=== PATIENT | male | born 1955 | race Caucasian/White ===

== ENCOUNTER 2018-10-27 20:29 | Inpatient (IN) | payer OTHER ==
[~2018-10-27] VITALS: Ht 182.9 cm; Wt 73.4 kg
[2018-10-27 22:38] VITALS: PULSE 111; Ht 182.9 cm; Wt 73.4 kg
[2018-10-27 23:03] VITALS: BP 166/89; RESP 20
[2018-10-27] MEDS ORDERED: QUET400T PO (23:15)
[2018-10-27] MEDS ORDERED: PARO10TA57 PO (23:16)
--- NOTE | 2018-10-27 23:53 | HP ---
Date/Time of Note Date/Time of Note DATE: 10/27/18 TIME: 23:53 Assessment/Plan VTE Prophylaxis Pharmacological prophylaxis: heparin Lines/Catheters IV C[facility]ter Type (from [facility]): double lumen Assessment/Plan Assessment/Plan 1. NSTEMI -Patient with reported history of multiple MIs -Telemetry monitoring -Supplemental oxygen, aspirin, statin, beta-juan carlos. As needed nitro and morphine -We will anticoagulate -Trend troponin -2D echo cardiology consult 2. Hypoxia: Patient with reported history of right-sided lobectomy -Check chest x-ray. Will consider chest CT as needed -Supplemental oxygen and bronchodilators 3. Depression/anxiety and bipolar -Continue home meds. Will provide additional antianxiety meds as needed -Psych consult 4. Reported history of CVA: Home medication does not include aspirin or statin -He will be on statin and aspirin. See #1 HPI/ROS Admit Date/Time Admit Date/Time Oct 27, 2018 at 22:02 Hx of Present Illness This is a 63-year-old male with with a history of CVA, [place], depression/anxiety, bipolar disorder, alcohol abuse, right lobectomy who initially presented to outside hospital complaining of chest pain cough and shortness of breath. He is found to have positive troponin. EKG without ST elevation or depression. He was transferred to [facility] for insurance reasons. He said he is homeless but for the past 1 year. He also stated he has been depressed to because of that and even had a thought of suicide by jumping off a bridge or by overdosing on medications. Currently he is not actively suicidal, but he requested to see psychiatrist. As far as lung surgery is concerned, he said he was told he had 3 polyps on the right side of his lung which were biopsied. One of them came back necrotic and the other 2 were inconclusive. He said after the lobectomy was done he was told he was most likely from [facility]. Denied cancer. PMH/Family/Social Past Medical History Past Surgical History Past Surgical Hx: other (see hpi) Family History Significant Family History: no pertinent family hx Social History Alcohol Use: other Smoking Status: Unknown if ever smoked Drug Use: other Exam Constitutional: other (no acute distress) Eyes: PERRL ENMT: nl external ears & nose Neck: supple Respiratory: normal air movement Cardiovascular: nl pulses Gastrointestinal: soft Extremities: normal pulses Medications Current Medications Nitroglycerin (Nitroglycerin (Sl Tab) 0.4 Mg) 1 tab Q5M PRN SL ANGINA; Start 10/28/18 at 00:00; Status UNV Enoxaparin Sodium (Lovenox) 70 mg ONCE SC ; Start 10/28/18 at 00:00; Status UNV IV Flush (NS 3 ml) 3 ml PER PROTOCOL IV ; Start 10/28/18 at 00:00; Status UNV Aspirin (Aspirin) 81 mg DAILY PO ; Start 10/28/18 at 09:00; Status UNV Nitroglycerin (Nitroglycerin (Sl Tab) 0.4 Mg) 1 tab Q5M PRN SL .CHEST PAIN; Start 10/28/18 at 00:00; Status UNV Acetaminophen (Tylenol Tab) 650 mg Q6H PRN PO .PAIN 1-3 OR TEMP; Start 10/28/18 at 00:00; Status UNV Acetaminophen/ Hydrocodone Bitart ([place] (5/325)) 1 tab Q6H PRN PO .PAIN 4-6; Start 10/28/18 at 00:00; Status UNV Morphine Sulfate (morphine) 2 mg Q4H PRN IV .PAIN 7-10; Start 10/28/18 at 00:00; Status UNV Famotidine (Pepcid Iv) 20 mg Q12 IV ; Start 10/28/18 at 09:00; Status UNV Albuterol/ Ipratropium (Duoneb) 3 ml Q2H RESP THERAPY PRN HHN SHORTNESS OF BREATH; Start 10/28/18 at 00:00; Status UNV Paroxetine HCl (Paxil) 10 mg BID PO ; Start 10/28/18 at 09:00; Status UNV Multivitamins 10 ml/Thiamine HCl 100 mg/Folic Acid 1 mg/Sodium Chloride 1,011.2 ml @ 125 mls/ hr DAILY@09 IVPB ; Start 10/28/18 at 09:00; Status UNV Quetiapine Fumarate (Seroquel) 100 mg HS PO ; Start 10/28/18 at 21:00; Status UNV Coded Allergies: No Known Allergy (Unverified , 11/02/18) Social History Smoking Status: Current every day smoker Exam/Review of Systems Vital Signs Vitals Vital Signs Date Temp Pulse Resp B/P (MAP) Pulse Ox O2 O2 Flow FiO2 Time Delivery Rate 10/27/18 98.9 20 166/89 98 23:03 (114) 10/27/18 Nasal 4.0 23:00 Cannula WADE COKER MD Oct 27, 2018 23:53
[2018-10-28] VITALS (13 sets, daily range): BP systolic 16–160; BP diastolic 75–89; PULSE 86–112; RESP 16–19
[2018-10-28] MEDS ORDERED: NITROGLYCERIN (SL) 0.4 MG TAB SL PRN
[2018-10-28] MEDS ORDERED: QUETIAPINE 100 MG TAB PO ONE
[2018-10-28] MEDS ORDERED: ENOXAPARIN 80 MG/0.8 ML SYG SC SCH
[2018-10-28] MEDS ORDERED: ACETAMINOPHEN 325 MG TAB PO PRN
[2018-10-28] MEDS ORDERED: NACL 0.9% 3 ML SYG IV SCH
[2018-10-28] MEDS: morphine 2 MG INJ IV PRN ×6 (00:08→23:13)
[2018-10-28] MEDS: ALBUTEROL/IPRATROPIUM (NEB) 3 ML AMP HHN PRN (01:13)
[2018-10-28] MEDS: HYDROCODONE/APAP (5/325) TAB PO PRN ×2 (01:14→06:58)
[2018-10-28] MEDS: NITROGLYCERIN (SL) 0.4 MG TAB SL PRN ×5 (01:42→15:16)
[2018-10-28] MEDS ORDERED: MAGNESIUM SULFATE 6 GM in DEXTROSE 5% 100 ML IVPB ONE (02:00)
[2018-10-28] MEDS ORDERED: ATORVASTATIN 40 MG TAB PO ONE (07:00)
[2018-10-28] MEDS: MULTIVITAMINS 10 ML, THIAMINE 100 MG, FOLIC ACID 1 MG in SOD CHLORIDE 0.9% 1,000 ML IVPB SCH (08:59)
[2018-10-28] MEDS: NICOTINE (21 MG/24 HR) PATCH TRANSDERM SCH (09:00)
[2018-10-28] MEDS ORDERED: METOPROLOL 25 MG TAB PO SCH (09:00)
[2018-10-28] MEDS: ASPIRIN 81 MG TAB PO SCH (09:00)
--- NOTE | 2018-10-28 09:33 | PSY ---
Date/Time of Note Date/Time of Note DATE: 10/28/18 TIME: 09:28 Psychiatric Subjective Eval Consent Pt consented to telemedicine: No Subjective Evaluation Patient location: inpatient History of present illness Patient is a 63-year-old male with a history of CVA, [place], right lobectomy who is admitted for chest pain and shortness of breath. On evaluation patient was very confused reports feeling depressed reports increased anxiety patient states he is [employer] of a company Hospitalization: other Allergies: Coded Allergies: No Known Allergy (Unverified , 11/01/18) Substance Abuse Substance abuse history: Yes Prior substance abuse treatmen: Yes Social History Marital status: other DPA/Conservatorship: No Psychiatric Objective Eval Review of Systems: Review of Systems: Not Applicable Physical Examination: Physical Examination: Not Applicable Energy: Decreased Mental Status Examination: Appearance: Poor Hygiene Psychomotor Activity: Slow Behavior: Cooperative Speech: Soft AFFECT: Flat Mood: Depressed Orientation: x4 Insight: Moderate Judgement: Moderate Attention Span: Distractible Laboratory Results Laboratory Tests Test 10/28/18 00:21 10/28/18 05:12 White Blood Count 8.5 10^3/ul Red Blood Count 3.77 10^6/ul Hemoglobin 13.4 g/dl Hematocrit 38.9 % Mean Corpuscular Volume 103.2 fl Mean Corpuscular Hemoglobin 35.5 pg Mean Corpuscular Hemoglobin Concent 34.4 g/dl Red Cell Distribution Width 14.2 % Platelet Count 175 10^3/UL Mean Platelet Volume 8.7 fl Immature Granulocytes % 0.600 % Neutrophils % 84.1 % Lymphocytes % 5.9 % Monocytes % 8.7 % Eosinophils % 0.2 % Basophils % 0.5 % Nucleated Red Blood Cells % 0.0 /100WBC Immature Granulocytes # 0.050 10^3/ul Neutrophils # 7.2 10^3/ul Lymphocytes # 0.5 10^3/ul Monocytes # 0.7 10^3/ul Eosinophils # 0.0 10^3/ul Basophils # 0.0 10^3/ul Nucleated Red Blood Cells # 0.0 10^3/ul Sodium Level 139 mmol/L Potassium Level 4.2 mmol/L Chloride Level 102 mmol/L Carbon Dioxide Level 25 mmol/L Anion Gap 12 Blood Urea Nitrogen 19 mg/dl Creatinine 0.80 mg/dl Est Glomerular Filtrat Rate mL/min > 60 mL/min Glucose Level 98 mg/dl Hemoglobin A1c 4.7 % 4.7 % Calcium Level 9.6 mg/dl Phosphorus Level 3.1 mg/dl Magnesium Level 1.1 mg/dl Total Bilirubin 1.2 mg/dl Direct Bilirubin 0.00 mg/dl Indirect Bilirubin 1.2 mg/dl Aspartate Amino Transf (AST/SGOT) 57 IU/L Alanine Aminotransferase (ALT/SGPT) 44 IU/L Alkaline Phosphatase 86 IU/L Creatine Kinase 145 IU/L 138 IU/L Creatine Kinase Index 3.1 2.8 Creatinine Kinase MB (Mass) 4.47 ng/ml 3.88 ng/ml Troponin I 0.132 ng/ml 0.079 ng/ml Total Protein 7.2 g/dl Albumin 4.1 g/dl Globulin 3.10 g/dl Albumin/Globulin Ratio 1.32 Triglycerides Level 95 mg/dl Cholesterol Level 154 mg/dl LDL Cholesterol, Calculated 62 mg/dl HDL Cholesterol 73 mg/dl Cholesterol/HDL Ratio 2.1 RATIO Thyroid Stimulating Hormone (TSH) 3.410 MIU/L Assessment and Plan Assessment/Diagnosis Diagnosis Major Depressive Disorder severe recurrent Recommendation/Plan Medication Management Paxil 10mg daily, Seroquel 200mg at bedtime Ativan 1mg Q6H PRN Multiple antipsychotics: No Psychotherapy Provide supportive therapy Discharge Disposition: Other Legal Status: Voluntary (Does not meet criteria for 5150) ENZO MUHAMMAD NP Oct 28, 2018 09:33
[2018-10-28] MEDS: FAMOTIDINE 20 MG INJ IV SCH ×2 (10:05→21:28)
[2018-10-28] MEDS: PAROXETINE 10 MG TAB PO SCH ×2 (10:05→21:28)
[2018-10-28] MEDS: hydrALAzine 20 MG INJ IV PRN ×2 (13:21→21:39)
--- NOTE | 2018-10-28 13:23 | CONS ---
Assessment/Plan Assessment/Plan Hospital Course (Demo Recall) Assessment: Atypical chest pain Minimally elevated troponin Hypertension Reported history of myocardial infarction - details are unclear, but patient reports no history of cardiac catheterization Reported history of stroke - details are unclear, no apparent residual deficits Chronic obstructive pulmonary disease Hypothyroidism Bipolar disorder Homelessness Alcohol abuse Tobacco abuse Recommendations: -patient not a good candidate for cardiac catheterization due to homelessness, alcohol abuse, probable medication noncompliance, and possible drug-seeking behavior -obtain CTA for further coronary evaluation -obtain transthoracic echocardiogram -continue aspirin 81mg daily -change metoprolol to carvedilol 12.5mg BID for better blood pressure control Consultation Date/Type/Reason Admit Date/Time Oct 27, 2018 at 22:02 Type of Consult Cardiology Reason for Consultation chest pain Date/Time of Note DATE: 10/28/18 TIME: 13:12 Hx of Present Illness The patient is a 63 year-old male who presented with [facility] with chest pain. He has been transferred to [facility] for further evaluation due to insurance capitation. He describes sudden onset of a sharp chest pain yesterday morning upon waking up. The pain has been constant since then, is exacerbated by certain body movements, and is unrelated to exertion. EKG showed sinus rhythm with Q waves in V1-V3 and no acute ischemic changes. Troponin at [facility] and initial repeat troponin here was elevated at 0.1, and second troponin here trended down to 0.07. The patient is also requesting for increased doses of morphine due to chest pain, back pain, and leg pain. 14 point review of systems negative other than per HPI. Past Medical History Reported history of myocardial infarction - details are unclear, but patient reports no history of cardiac catheterization Reported history of stroke - details are unclear, no apparent residual deficits Chronic obstructive pulmonary disease Hypothyroidism Bipolar disorder Home Meds Reported Medications Paroxetine Hcl* (Paxil*) 10 Mg Tablet, 10 MG PO BID, TAB 10/27/18 Quetiapine Fumarate* (Seroquel*) 400 Mg Tablet, 600 MG PO HS, TAB 10/27/18 Medications Current Medications IV Flush (NS 3 ml) 3 ml PER PROTOCOL IV ; Start 10/28/18 at 00:00 Aspirin (Aspirin) 81 mg DAILY PO Last administered on 10/28/18at 09:00; Admin Dose 81 MG; Start 10/28/18 at 09:00 Nitroglycerin (Nitroglycerin (Sl Tab) 0.4 Mg) 1 tab Q5M PRN SL .CHEST PAIN Last administered on 10/28/18 12:38; Admin Dose 1 TAB; Start 10/28/18 at 00:00 Acetaminophen (Tylenol Tab) 650 mg Q6H PRN PO .PAIN 1-3 OR TEMP; Start 10/28/18 at 00:00 Acetaminophen/ Hydrocodone Bitart ([place] (5/325)) 1 tab Q6H PRN PO .PAIN 4-6 Last administered on 10/28/18 06:58; Admin Dose 1 TAB; Start 10/28/18 at 00:00 Morphine Sulfate (morphine) 2 mg Q4H PRN IV .PAIN 7-10 Last administered on 10/28/18 09:24; Admin Dose 2 MG; Start 10/28/18 at 00:00 Famotidine (Pepcid Iv) 20 mg Q12 IV Last administered on 10/28/18 10:05; Admin Dose 20 MG; Start 10/28/18 at 09:00 Albuterol/ Ipratropium (Duoneb) 3 ml Q2H RESP THERAPY PRN HHN SHORTNESS OF BREATH Last administered on 10/28/18 01:13; Admin Dose 3 ML; Start 10/28/18 at 00:00 Paroxetine HCl (Paxil) 10 mg BID PO Last administered on 10/28/18 10:05; Admin Dose 10 MG; Start 10/28/18 at 09:00 Multivitamins 10 ml/Thiamine HCl 100 mg/Folic Acid 1 mg/Sodium Chloride 1,011.2 ml @ 125 mls/ hr DAILY@09 IVPB Last administered on 10/28/18 08:59; Admin Dose 125 MLS/HR; Start 10/28/18 at 09:00 Quetiapine Fumarate (Seroquel) 100 mg HS PO ; Start 10/28/18 at 21:00 Nicotine (Nicoderm 21 Mg/ 24hr) 1 patch DAILY TRANSDERM Last administered on 10/28/18 09:00; Admin Dose 1 PATCH; Start 10/28/18 at 09:00 Metoprolol Tartrate (Lopressor) 25 mg BID PO Last administered on 10/28/18 09:01; Admin Dose 25 MG; Start 10/28/18 at 09:00 Atorvastatin Calcium (Lipitor) 40 mg HS PO ; Start 10/28/18 at 21:00 Lorazepam (Ativan) 1 mg Q6H PRN PO ANXIETY; Start 10/28/18 at 09:30 Hydralazine HCl (Apresoline) 5 mg Q3H PRN IV SBP GREATER THAN 150; Start 10/28/18 at 13:00 Allergies: Coded Allergies: No Known Allergy (Unverified , 10/27/18) Past Surgical History Past Surgical Hx: other (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) Family History Significant Family History: no pertinent family hx Social History Alcohol Use: heavy Smoking Status: Current every day smoker Drug Use: none (patient denies) Exam/Review of Systems Vital Signs Vitals Vital Signs Date Temp Pulse Resp B/P (MAP) Pulse Ox O2 O2 Flow FiO2 Time Delivery Rate 10/28/18 90 12:03 10/28/18 98.8 17 160/89 98 11:23 (112) 10/28/18 4.0 01:17 10/28/18 Nasal 01:17 Cannula Intake and Output 10/27/18 10/27/18 10/28/18 1515:00 23:00 07:00 IntakeIntake Total 700 ml OutputOutput Total 400 ml BalanceBalance 300 ml Exam Constitutional: alert, well developed Psych: no complaints, nl mood/affect Head: normocephalic, atraumatic Eyes: nl conjunctiva, nl lids ENMT: nl external ears & nose, nl nasal mucosa & septum Neck: supple, non-tender Respiratory: diminished breath sounds, wheezing Cardiovascular: regular rate and rhythm Gastrointestinal: soft, non-tender Musculoskeletal: nl extremities to inspection Extremities: No cyanosis, No clubbing, No edema Neurological: nl mental status, nl speech Labs Result Diagram: 10/28/18 0021 10/28/18 0021 Results 24hrs Laboratory Tests Test 10/28/18 00:21 10/28/18 05:12 White Blood Count 8.5 Red Blood Count 3.77 L Hemoglobin 13.4 L Hematocrit 38.9 L Mean Corpuscular Volume 103.2 H Mean Corpuscular Hemoglobin 35.5 H Mean Corpuscular Hemoglobin Concent 34.4 Red Cell Distribution Width 14.2 Platelet Count 175 Mean Platelet Volume 8.7 Immature Granulocytes % 0.600 H Neutrophils % 84.1 H Lymphocytes % 5.9 L Monocytes % 8.7 Eosinophils % 0.2 Basophils % 0.5 Nucleated Red Blood Cells % 0.0 Immature Granulocytes # 0.050 H Neutrophils # 7.2 Lymphocytes # 0.5 L Monocytes # 0.7 Eosinophils # 0.0 Basophils # 0.0 Nucleated Red Blood Cells # 0.0 Sodium Level 139 Potassium Level 4.2 Chloride Level 102 Carbon Dioxide Level 25 Anion Gap 12 Blood Urea Nitrogen 19 Creatinine 0.80 Est Glomerular Filtrat Rate mL/min > 60 Glucose Level 98 Hemoglobin A1c 4.7 4.7 Calcium Level 9.6 Phosphorus Level 3.1 Magnesium Level 1.1 L Total Bilirubin 1.2 Direct Bilirubin 0.00 Indirect Bilirubin 1.2 H Aspartate Amino Transf (AST/SGOT) 57 H Alanine Aminotransferase (ALT/SGPT) 44 Alkaline Phosphatase 86 Creatine Kinase 145 138 Creatine Kinase Index 3.1 2.8 Creatinine Kinase MB (Mass) 4.47 H 3.88 H Troponin I 0.132 *H 0.079 Total Protein 7.2 Albumin 4.1 Globulin 3.10 Albumin/Globulin Ratio 1.32 Triglycerides Level 95 Cholesterol Level 154 LDL Cholesterol, Calculated 62 HDL Cholesterol 73 Cholesterol/HDL Ratio 2.1 Thyroid Stimulating Hormone (TSH) 3.410 Medications Medications Current Medications IV Flush (NS 3 ml) 3 ml PER PROTOCOL IV ; Start 10/28/18 at 00:00 Aspirin (Aspirin) 81 mg DAILY PO Last administered on 10/28/18at 09:00; Admin Dose 81 MG; Start 10/28/18 at 09:00 Nitroglycerin (Nitroglycerin (Sl Tab) 0.4 Mg) 1 tab Q5M PRN SL .CHEST PAIN Last administered on 10/28/18at 12:38; Admin Dose 1 TAB; Start 10/28/18 at 00:00 Acetaminophen (Tylenol Tab) 650 mg Q6H PRN PO .PAIN 1-3 OR TEMP; Start 10/28/18 at 00:00 Acetaminophen/ Hydrocodone Bitart ([place] (5/325)) 1 tab Q6H PRN PO .PAIN 4-6 Last administered on 10/28/18at 06:58; Admin Dose 1 TAB; Start 10/28/18 at 00:00 Morphine Sulfate (morphine) 2 mg Q4H PRN IV .PAIN 7-10 Last administered on 10/28/18at 09:24; Admin Dose 2 MG; Start 10/28/18 at 00:00 Famotidine (Pepcid Iv) 20 mg Q12 IV Last administered on 10/28/18 10:05; Admin Dose 20 MG; Start 10/28/18 at 09:00 Albuterol/ Ipratropium (Duoneb) 3 ml Q2H RESP THERAPY PRN HHN SHORTNESS OF BREATH Last administered on 10/28/18 01:13; Admin Dose 3 ML; Start 10/28/18 at 00:00 Paroxetine HCl (Paxil) 10 mg BID PO Last administered on 10/28/18 10:05; Admin Dose 10 MG; Start 10/28/18 at 09:00 Multivitamins 10 ml/Thiamine HCl 100 mg/Folic Acid 1 mg/Sodium Chloride 1,011.2 ml @ 125 mls/ hr DAILY@09 IVPB Last administered on 10/28/18 08:59; Admin Dose 125 MLS/HR; Start 10/28/18 at 09:00 Quetiapine Fumarate (Seroquel) 100 mg HS PO ; Start 10/28/18 at 21:00 Nicotine (Nicoderm 21 Mg/ 24hr) 1 patch DAILY TRANSDERM Last administered on 10/28/18 09:00; Admin Dose 1 PATCH; Start 10/28/18 at 09:00 Metoprolol Tartrate (Lopressor) 25 mg BID PO Last administered on 10/28/18 09:01; Admin Dose 25 MG; Start 10/28/18 at 09:00 Atorvastatin Calcium (Lipitor) 40 mg HS PO ; Start 10/28/18 at 21:00 Lorazepam (Ativan) 1 mg Q6H PRN PO ANXIETY; Start 10/28/18 at 09:30 Hydralazine HCl (Apresoline) 5 mg Q3H PRN IV SBP GREATER THAN 150; Start 10/28/18 at 13:00 SHERRILL DUMONT MD Oct 28, 2018 13:22
[2018-10-28] MEDS ORDERED: CLONIDINE 0.2 MG/24 HR PATCH TRANSDERM SCH (13:30)
[2018-10-28] MEDS ORDERED: METOPROLOL 100 MG TAB PO STA ×3 (14:08→17:25)
[2018-10-28] MEDS: HYDROCODONE/APAP (10/325) TAB PO PRN ×2 (16:26→21:29)
[2018-10-28] MEDS: LORAZEPAM 1 MG TAB PO PRN (16:26)
--- NOTE | 2018-10-28 17:03 | RADRPT ---
Echocardiogram Report Patient Name: Juan AUGUSTE ID: [id number] : 1955 (63y 1m)Study Date: 10/28/2018 7:44:44 AM Gender: MAccession #: [id number] Tech: Maritocristo Hernandez RUST Location: [address] Ref.Physician: WADE COKER Height(Cm): BSA: Weight(Kg): Quality: Technically Difficult StudyAccount #: Procedures: Echocardiographic Report: Transthoracic echocardiogram with complete 2D, M-Mode, and doppler examination. Indications: NSTEMI. Measurements: 2D/M Mode Doppler Measurement Value Normal Range Measurement Value Normal Range LVIDd 2D 5.2 [ 4.2 - 5.8 ] cm AV Peak Shane 1.6 [ 100.0 - 170.0 ] cm/sec LVIDs 2D 4.2 [ 2.5 - 4.0 ] cm AV Peak PG 10.0 [ 2.0 - 9.0 ] mmHg LVPWd 2D 1.1 [ 0.6 - 1.0 ] cm LVOT Peak Shane 1.0 [ 70.0 - 110.0 ] cm/sec IVSd 2D 1.1 [ 0.6 - 1.0 ] cm LVOT Peak PG 4.0 [ 2.0 - 6.0 ] mmHg AoR Diam 2D 3.0 [ 2.6 - 3.4 ] cm MV E Peak Shane 0.7 [ 60.0 - 130.0 ] cm/sec EDV 2D 130.0 [ 62.0 - 150.0 ] ml MV A Peak Shane 0.8 [ 100.0 - 120.0 ] cm/sec ESV 2D 79.0 [ 21.0 - 61.0 ] ml MV E/A 0.9 [ 0.8 - 1.5 ] ratio EF 2D 39.2 [ 52.0 - 72.0 ] percent MV Decel Time 169 [ 104 - 258 ] msec LA Dimen 2D 2.9 [ 3.0 - 4.0 ] cm Lat E` Shane 0.1 [ 10.0 - 15.0 ] cm/sec Lateral E/E` 7.2 [ 1.0 - 2.0 ] ratio MV E/A 0.9 [ 0.8 - 1.5 ] ratio TR Peak Shane 2.4 [ 100.0 - 280.0 ] cm/sec TR Peak PG 23.0 mmHg RVSP 26.0 [ 10.0 - 36.0 ] mmHg Findings: Left Ventricle: Normal left ventricular cavity size. Left ventricular wall thickness upper limits of normal. Moderate left ventricular systolic dysfunction. Ejection fraction is visually estimated at 40 %. Tissue Doppler/Mitral Doppler indices are consistent with pseudonormalization with mildly elevated left atrial pressure (Stage II diastolic dysfunction). These segments of the LV are hypokinetic inferolateral base and inferolateral mid segment. Right Ventricle: Normal right ventricular size. Normal right ventricular systolic function. Left Atrium: The left atrium is normal in size. Right Atrium: The right atrium is normal in size. Mitral Valve: Mild mitral leaflet calcification. Mild mitral annular calcification. Trace mitral regurgitation. Aortic Valve: No significant aortic stenosis or insufficiency. Aortic cusps appear mildly calcified. Tricuspid Valve: Normal appearance of the tricuspid valve. Estimated peak PA systolic pressure 26 mmHg. There is trace tricuspid regurgitation. Pericardium: Normal pericardium with no significant pericardial effusion. Aorta: Normal aortic root. IVC: Normal size and normal respiratory collapse consistent with normal right atrial pressure. Conclusions: Normal left ventricular cavity size. Left ventricular wall thickness upper limits of normal. Moderate left ventricular systolic dysfunction. Ejection fraction is visually estimated at 40 %. Tissue Doppler/Mitral Doppler indices are consistent with pseudonormalization with mildly elevated left atrial pressure (Stage II diastolic dysfunction). These segments of the LV are hypokinetic inferolateral base and inferolateral mid segment. Electronically Signed By: Naveed Wynne 2018-10-28 17:02:47 PDT
[2018-10-28] MEDS ORDERED: NITROGLYCERIN AEROSOL (4.9 GM) ONE (17:22)
--- NOTE | 2018-10-28 20:51 | PN ---
Date/Time of Note Date/Time of Note DATE: 10/28/18 TIME: 20:32 Assessment/Plan VTE Prophylaxis Risk score (from Ns)>0 risk: 6 SCD applied (from Ns): Yes SCD contraindicated: low risk/ambulating Pharmacological prophylaxis: LMWH Lines/Catheters IV Catheter Type (from Nrsg): Peripheral IV Assessment/Plan Hospital Course A/P 1) Nstemi; not a candidate for cath. stable, cont med mngmnt: asa/statin/acei/imdur 2) Chr etoh; ro pancreatitis 3) Tobacco abuse; sp counselling 4) Aty CP/ sharp; cont supportive care 5) MDD; no ideation; cleared for dc 6) Substance abuse; sp counselling 7) CAD? no ho cath. echo w inferolat wma; watch for bradycardia 8) H/o Lt stroke 9) Nonadherence 10) Ftt/ homeless? placement? 11) Bipolar? 12) Chr Back pain; no ho infection/surgery 13) H/o lobectomy; 14) H/o [facility] Fever? 15) B12/folic acid def? S: non exertional, sharp midsternal cp, assoc w nausea. denies injury, slept on the street recently. no fever/ chills. 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5 Nucleated Red Blood Cells % 0.0 Immature Granulocytes # 0.050 H Neutrophils # 7.2 Lymphocytes # 0.5 L Monocytes # 0.7 Eosinophils # 0.0 Basophils # 0.0 Nucleated Red Blood Cells # 0.0 Sodium Level 139 Potassium Level 4.2 Chloride Level 102 Carbon Dioxide Level 25 Anion Gap 12 Blood Urea Nitrogen 19 Creatinine 0.80 Est Glomerular Filtrat Rate mL/min > 60 Glucose Level 98 Hemoglobin A1c 4.7 4.7 Calcium Level 9.6 Phosphorus Level 3.1 Magnesium Level 1.1 L Total Bilirubin 1.2 Direct Bilirubin 0.00 Indirect Bilirubin 1.2 H Aspartate Amino Transf (AST/SGOT) 57 H Alanine Aminotransferase (ALT/SGPT) 44 Alkaline Phosphatase 86 Creatine Kinase 145 138 Creatine Kinase Index 3.1 2.8 Creatinine Kinase MB (Mass) 4.47 H 3.88 H Troponin I 0.132 *H 0.079 Total Protein 7.2 Albumin 4.1 Globulin 3.10 Albumin/Globulin Ratio 1.32 Triglycerides Level 95 Cholesterol Level 154 LDL Cholesterol, Calculated 62 HDL Cholesterol 73 Cholesterol/HDL Ratio 2.1 Thyroid Stimulating Hormone (TSH) 3.410 Exam/Review of Systems Exam Vitals Vital Signs Date Temp Pulse Resp B/P (MAP) Pulse Ox O2 O2 Flow FiO2 Time Delivery Rate 10/28/18 86 20:11 10/28/18 100.0 19 153/86 99 19:46 (108) 10/28/18 Nasal 4.0 08:04 Cannula Intake and Output 10/27/18 10/27/18 10/28/18 1515:00 23:00 07:00 IntakeIntake Total 700 ml OutputOutput Total 400 ml BalanceBalance 300 ml Results Results 24hrs Laboratory Tests Test 10/28/18 00:21 10/28/18 05:12 White Blood Count 8.5 Red Blood Count 3.77 L Hemoglobin 13.4 L Hematocrit 38.9 L Mean Corpuscular Volume 103.2 H Mean Corpuscular Hemoglobin 35.5 H Mean Corpuscular Hemoglobin Concent 34.4 Red Cell Distribution Width 14.2 Platelet Count 175 Mean Platelet Volume 8.7 Immature Granulocytes % 0.600 H Neutrophils % 84.1 H Lymphocytes % 5.9 L Monocytes % 8.7 Eosinophils % 0.2 Basophils % 0.5 Nucleated Red Blood Cells % 0.0 Immature Granulocytes # 0.050 H Neutrophils # 7.2 Lymphocytes # 0.5 L Monocytes # 0.7 Eosinophils # 0.0 Basophils # 0.0 Nucleated Red Blood Cells # 0.0 Sodium Level 139 Potassium Level 4.2 Chloride Level 102 Carbon Dioxide Level 25 Anion Gap 12 Blood Urea Nitrogen 19 Creatinine 0.80 Est Glomerular Filtrat Rate mL/min > 60 Glucose Level 98 Hemoglobin A1c 4.7 4.7 Calcium Level 9.6 Phosphorus Level 3.1 Magnesium Level 1.1 L Total Bilirubin 1.2 Direct Bilirubin 0.00 Indirect Bilirubin 1.2 H Aspartate Amino Transf (AST/SGOT) 57 H Alanine Aminotransferase (ALT/SGPT) 44 Alkaline Phosphatase 86 Creatine Kinase 145 138 Creatine Kinase Index 3.1 2.8 Creatinine Kinase MB (Mass) 4.47 H 3.88 H Troponin I 0.132 *H 0.079 Total Protein 7.2 Albumin 4.1 Globulin 3.10 Albumin/Globulin Ratio 1.32 Triglycerides Level 95 Cholesterol Level 154 LDL Cholesterol, Calculated 62 HDL Cholesterol 73 Cholesterol/HDL Ratio 2.1 Thyroid Stimulating Hormone (TSH) 3.410 Medications Medication Current Medications IV Flush (NS 3 ml) 3 ml PER PROTOCOL IV ; Start 10/28/18 at 00:00 Aspirin (Aspirin) 81 mg DAILY PO Last administered on 10/28/18at 09:00; Admin Dose 81 MG; Start 10/28/18 at 09:00 Nitroglycerin (Nitroglycerin (Sl Tab) 0.4 Mg) 1 tab Q5M PRN SL .CHEST PAIN Last administered on 10/28/18at 15:16; Admin Dose 1 TAB; Start 10/28/18 at 00:00 Acetaminophen (Tylenol Tab) 650 mg Q6H PRN PO .PAIN 1-3 OR TEMP; Start 10/28/18 at 00:00 Morphine Sulfate (morphine) 2 mg Q4H PRN IV .PAIN 7-10 Last administered on 10/28/18at 19:09; Admin Dose 2 MG; Start 10/28/18 at 00:00 Famotidine (Pepcid Iv) 20 mg Q12 IV Last administered on 10/28/18at 10:05; Admin Dose 20 MG; Start 10/28/18 at 09:00 Albuterol/ Ipratropium (Duoneb) 3 ml Q2H RESP THERAPY PRN HHN SHORTNESS OF BREATH Last administered on 10/28/18at 01:13; Admin Dose 3 ML; Start 10/28/18 at 00:00 Paroxetine HCl (Paxil) 10 mg BID PO Last administered on 10/28/18 10:05; Admin Dose 10 MG; Start 10/28/18 at 09:00 Multivitamins 10 ml/Thiamine HCl 100 mg/Folic Acid 1 mg/Sodium Chloride 1,011.2 ml @ 125 mls/ hr DAILY@09 IVPB Last administered on 10/28/18 08:59; Admin Dose 125 MLS/HR; Start 10/28/18 at 09:00 Quetiapine Fumarate (Seroquel) 100 mg HS PO ; Start 10/28/18 at 21:00 Nicotine (Nicoderm 21 Mg/ 24hr) 1 patch DAILY TRANSDERM Last administered on 10/28/18 09:00; Admin Dose 1 PATCH; Start 10/28/18 at 09:00 Atorvastatin Calcium (Lipitor) 40 mg HS PO ; Start 10/28/18 at 21:00 Lorazepam (Ativan) 1 mg Q6H PRN PO ANXIETY Last administered on 10/28/18 16:26; Admin Dose 1 MG; Start 10/28/18 at 09:30 Hydralazine HCl (Apresoline) 5 mg Q3H PRN IV SBP GREATER THAN 150 Last administered on 10/28/18 13:21; Admin Dose 5 MG; Start 10/28/18 at 13:00 Clonidine HCl (Catapres-Tts 2 Patch) 1 patch Q7D TRANSDERM Last administered on 10/28/18 14:40; Admin Dose 1 PATCH; Start 10/28/18 at 13:30 Acetaminophen/ Hydrocodone Bitart ([place] (10/325)) 1 tab Q3H PRN PO MODERATE PAIN LEVEL 4-6 Last administered on 10/28/18 16:26; Admin Dose 1 TAB; Start 10/28/18 at 15:30 BLANCA YOUNG MD Oct 28, 2018 20:50
[2018-10-28] MEDS ORDERED: QUETIAPINE 100 MG TAB PO SCH (21:00)
[2018-10-28] MEDS: ATORVASTATIN 40 MG TAB PO SCH (21:28)
[2018-10-28] MEDS: QUETIAPINE 25 MG TAB PO SCH (21:28)
[2018-10-28] MEDS ORDERED: LIDOCAINE/MYLANTA 40 ML BTL PO ONE (22:00)
[2018-10-29] VITALS (11 sets, daily range): BP systolic 118–145; BP diastolic 75–85; PULSE 71–100; RESP 18–20
[2018-10-29] MEDS: morphine 2 MG INJ IV PRN ×4 (03:24→19:36)
[2018-10-29] MEDS: HYDROCODONE/APAP (10/325) TAB PO PRN ×3 (06:31→20:23)
[2018-10-29] MEDS: FAMOTIDINE 20 MG INJ IV SCH ×2 (08:46→20:21)
[2018-10-29] MEDS: ASPIRIN 81 MG TAB PO SCH (08:46)
[2018-10-29] MEDS: ISOSORBIDE MONONITRATE(SR)30 MG TAB PO SCH (08:46)
[2018-10-29] MEDS: PAROXETINE 10 MG TAB PO SCH ×2 (08:46→20:22)
[2018-10-29] MEDS: NICOTINE (21 MG/24 HR) PATCH TRANSDERM SCH (08:48)
[2018-10-29] MEDS: ENOXAPARIN 80 MG/0.8 ML SYG SC SCH ×2 (08:52→20:30)
[2018-10-29] MEDS: MULTIVITAMINS 10 ML, THIAMINE 100 MG, FOLIC ACID 1 MG in SOD CHLORIDE 0.9% 1,000 ML IVPB SCH (08:55)
[2018-10-29] MEDS ORDERED: METOPROLOL 100 MG TAB PO STA (11:13)
[2018-10-29] MEDS ORDERED: IOHEXOL 0 ML ONE (13:32)
[2018-10-29] MEDS ORDERED: SOD CHLORIDE 0.9% 0 ML ONE (13:32)
--- NOTE | 2018-10-29 13:44 | CONS ---
Assessment/Plan Assessment/Plan Hospital Course (Demo Recall) Assessment: Atypical chest pain Minimally elevated troponin Cardiomyopathy - LVEF 40% with inferolateral hypokinesis, probably ischemic cardiomyopathy Hypertension Reported history of myocardial infarction - details are unclear, but patient reports no history of cardiac catheterization Reported history of stroke - details are unclear, no apparent residual deficits Chronic obstructive pulmonary disease Hypothyroidism Bipolar disorder Homelessness Alcohol abuse Tobacco abuse Recommendations: -patient not a good candidate for cardiac catheterization due to homelessness, alcohol abuse, probable medication noncompliance, and possible drug-seeking behavior -obtain CTA for further coronary evaluation, today if able to control heart rate -echocardiogram showed LVEF 40% with inferolateral hypokinesis -continue aspirin 81mg daily Consultation Date/Type/Reason Admit Date/Time Oct 27, 2018 at 22:02 Initial Consult Date Type of Consult Cardiology Date/Time of Note DATE: 10/29/18 TIME: 13:41 24 HR Interval Summary Free Text/Dictation Patient once again wanting to discuss increasing pain medications. Coronary CTA was deferred yesterday as unable to bring heart rates down to the 60s. Detailed Summary Additional Comments 14 point review of systems without changes. Exam/Review of Systems Vital Signs Vitals Vital Signs Date Temp Pulse Resp B/P (MAP) Pulse Ox O2 O2 Flow FiO2 Time Delivery Rate 10/29/18 93 12:00 10/29/18 98.3 20 118/75 93 11:42 (89) 10/29/18 Nasal 4.0 08:00 Cannula Intake and Output 10/28/18 10/28/18 10/29/18 1515:00 23:00 07:00 IntakeIntake Total 112 ml 650 ml 150 ml OutputOutput Total 1300 ml 100 ml BalanceBalance 112 ml -650 ml 50 ml Exam Exam Constitutional: alert, well developed Psych: no complaints, nl mood/affect Head: normocephalic, atraumatic Eyes: nl conjunctiva, nl lids ENMT: nl external ears & nose, nl nasal mucosa & septum Neck: supple, non-tender Respiratory: diminished breath sounds, wheezing Cardiovascular: regular rate and rhythm Gastrointestinal: soft, non-tender Musculoskeletal: nl extremities to inspection Extremities: No cyanosis, No clubbing, No edema Neurological: nl mental status, nl speech Labs Result Diagram: 10/29/18 0514 10/29/18 0514 Results 24hrs Laboratory Tests Test 10/29/18 05:14 White Blood Count 7.8 Red Blood Count 3.76 L Hemoglobin 13.5 L Hematocrit 39.0 L Mean Corpuscular Volume 103.7 H Mean Corpuscular Hemoglobin 35.9 H Mean Corpuscular Hemoglobin Concent 34.6 Red Cell Distribution Width 13.7 Platelet Count 140 Mean Platelet Volume 9.4 Immature Granulocytes % 0.600 H Neutrophils % 74.6 Lymphocytes % 13.7 L Monocytes % 9.5 Eosinophils % 1.1 Basophils % 0.5 Nucleated Red Blood Cells % 0.0 Immature Granulocytes # 0.050 H Neutrophils # 5.8 Lymphocytes # 1.1 Monocytes # 0.7 Eosinophils # 0.1 Basophils # 0.0 Nucleated Red Blood Cells # 0.0 Prothrombin Time 12.7 Prothrombin Time Ratio 1.0 INR International Normalized Ratio 0.94 Activated Partial Thromboplast Time 36.3 H Sodium Level 137 Potassium Level 3.9 Chloride Level 101 Carbon Dioxide Level 27 Anion Gap 9 Blood Urea Nitrogen 13 Creatinine 0.82 Est Glomerular Filtrat Rate mL/min > 60 Glucose Level 100 Calcium Level 9.5 Phosphorus Level 3.4 Magnesium Level 1.6 L Total Bilirubin 0.8 Direct Bilirubin 0.00 Indirect Bilirubin 0.8 Aspartate Amino Transf (AST/SGOT) 37 Alanine Aminotransferase (ALT/SGPT) 24 Alkaline Phosphatase 79 Troponin I 0.056 Total Protein 7.3 Albumin 3.9 Globulin 3.40 H Albumin/Globulin Ratio 1.14 Lipase 75 Thyroid Stimulating Hormone (TSH) 3.520 Free Thyroxine 1.27 Total Triiodothyronine 1.06 Hepatitis B Surface Antigen NEGATIVE Hepatitis B Core Total Antibody REACTIVE H Hepatitis C Antibody NEGATIVE Medications Medications Current Medications IV Flush (NS 3 ml) 3 ml PER PROTOCOL IV ; Start 10/28/18 at 00:00 Aspirin (Aspirin) 81 mg DAILY PO Last administered on 10/29/18at 08:46; Admin Dose 81 MG; Start 10/28/18 at 09:00 Nitroglycerin (Nitroglycerin (Sl Tab) 0.4 Mg) 1 tab Q5M PRN SL .CHEST PAIN Last administered on 10/28/18at 15:16; Admin Dose 1 TAB; Start 10/28/18 at 00:00 Acetaminophen (Tylenol Tab) 650 mg Q6H PRN PO .PAIN 1-3 OR TEMP; Start 10/28/18 at 00:00 Morphine Sulfate (morphine) 2 mg Q4H PRN IV .PAIN 7-10 Last administered on 10/29/18 08:55; Admin Dose 2 MG; Start 10/28/18 at 00:00 Famotidine (Pepcid Iv) 20 mg Q12 IV Last administered on 10/29/18 08:46; Admin Dose 20 MG; Start 10/28/18 at 09:00 Albuterol/ Ipratropium (Duoneb) 3 ml Q2H RESP THERAPY PRN HHN SHORTNESS OF BREATH Last administered on 10/28/18 01:13; Admin Dose 3 ML; Start 10/28/18 at 00:00 Paroxetine HCl (Paxil) 10 mg BID PO Last administered on 10/29/18 08:46; Admin Dose 10 MG; Start 10/28/18 at 09:00 Multivitamins 10 ml/Thiamine HCl 100 mg/Folic Acid 1 mg/Sodium Chloride 1,011.2 ml @ 125 mls/ hr DAILY@09 IVPB Last administered on 10/29/18 08:55; Admin Dose 125 MLS/HR; Start 10/28/18 at 09:00 Quetiapine Fumarate (Seroquel) 100 mg HS PO Last administered on 10/28/18 21:28; Admin Dose 100 MG; Start 10/28/18 at 21:00 Nicotine (Nicoderm 21 Mg/ 24hr) 1 patch DAILY TRANSDERM Last administered on 10/29/18 08:48; Admin Dose 1 PATCH; Start 10/28/18 at 09:00 Atorvastatin Calcium (Lipitor) 40 mg HS PO Last administered on 10/28/18 21:28; Admin Dose 40 MG; Start 10/28/18 at 21:00 Lorazepam (Ativan) 1 mg Q6H PRN PO ANXIETY Last administered on 10/28/18 16:26; Admin Dose 1 MG; Start 10/28/18 at 09:30 Hydralazine HCl (Apresoline) 5 mg Q3H PRN IV SBP GREATER THAN 150 Last administered on 10/28/18 21:39; Admin Dose 5 MG; Start 10/28/18 at 13:00 Clonidine HCl (Catapres-Tts 2 Patch) 1 patch Q7D TRANSDERM Last administered on 10/28/18 14:40; Admin Dose 1 PATCH; Start 10/28/18 at 13:30 Acetaminophen/ Hydrocodone Bitart ([place] ()) 1 tab Q3H PRN PO MODERATE PAIN LEVEL 4-6 Last administered on 10/29/18at 12:39; Admin Dose 1 TAB; Start 10/28/18 at 15:30 Enoxaparin Sodium (Lovenox) 75 mg Q12 SC Last administered on 10/29/18at 08:52; Admin Dose 75 MG; Start 10/29/18 at 09:00 Isosorbide Mononitrate (Imdur) 30 mg DAILY PO Last administered on 10/29/18at 08:46; Admin Dose 30 MG; Start 10/29/18 at 09:00 SHERRILL DUMONT MD Oct 29, 2018 13:44
[2018-10-29] MEDS ORDERED: MULTIVITAMINS 10 ML, FOLIC ACID 1 MG in SOD CHLORIDE 0.9% 1,000 ML IVPB SCH (17:21)
[2018-10-29] MEDS: ATORVASTATIN 40 MG TAB PO SCH (20:21)
[2018-10-29] MEDS: QUETIAPINE 25 MG TAB PO SCH (20:21)
--- NOTE | 2018-10-29 20:46 | PN ---
Date/Time of Note Date/Time of Note DATE: 10/29/18 TIME: 20:45 Assessment/Plan VTE Prophylaxis Risk score (from Ns)>0 risk: 3 SCD applied (from Ns): No SCD contraindicated: low risk/ambulating Pharmacological prophylaxis: LMWH Lines/Catheters IV Catheter Type (from [place]): [place] Assessment/Plan Hospital Course A/P 1) Nstemi; not a candidate for cath. stable, cont med mngmnt: asa/statin/acei/imdur 2) Chr etoh; ro pancreatitis 3) Tobacco abuse; sp counselling 4) Aty CP/ sharp; cont supportive care 5) MDD; no ideation; cleared for dc 6) Substance abuse; sp counselling 7) CAD? no ho cath. echo w inferolat wma; watch for bradycardia 8) H/o Lt stroke 9) Nonadherence 10) Ftt/ homeless placement? 11) Bipolar? 12) Chr Back pain; no ho infection/surgery 13) H/o lobectomy; 14) [facility] 15) B12/folic acid def? S: 10/28 non exertional, sharp midsternal cp, assoc w nausea. denies injury, slept on the street recently. no fever/ chills. 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 no distress O: vss; sr PE no pallor/ jvd reg s1s2 no mrg ctab; mild tender bs+ nt; nd; no r/r/g no edema Result Diagram: 10/29/18 0514 10/29/18 0514 Results 24hrs Laboratory Tests Test 10/29/18 05:14 White Blood Count 7.8 Red Blood Count 3.76 L Hemoglobin 13.5 L Hematocrit 39.0 L Mean Corpuscular Volume 103.7 H Mean Corpuscular Hemoglobin 35.9 H Mean Corpuscular Hemoglobin Concent 34.6 Red Cell Distribution Width 13.7 Platelet Count 140 Mean Platelet Volume 9.4 Immature Granulocytes % 0.600 H Neutrophils % 74.6 Lymphocytes % 13.7 L Monocytes % 9.5 Eosinophils % 1.1 Basophils % 0.5 Nucleated Red Blood Cells % 0.0 Immature Granulocytes # 0.050 H Neutrophils # 5.8 Lymphocytes # 1.1 Monocytes # 0.7 Eosinophils # 0.1 Basophils # 0.0 Nucleated Red Blood Cells # 0.0 Prothrombin Time 12.7 Prothrombin Time Ratio 1.0 INR International Normalized Ratio 0.94 Activated Partial Thromboplast Time 36.3 H Sodium Level 137 Potassium Level 3.9 Chloride Level 101 Carbon Dioxide Level 27 Anion Gap 9 Blood Urea Nitrogen 13 Creatinine 0.82 Est Glomerular Filtrat Rate mL/min > 60 Glucose Level 100 Calcium Level 9.5 Phosphorus Level 3.4 Magnesium Level 1.6 L Total Bilirubin 0.8 Direct Bilirubin 0.00 Indirect Bilirubin 0.8 Aspartate Amino Transf (AST/SGOT) 37 Alanine Aminotransferase (ALT/SGPT) 24 Alkaline Phosphatase 79 Troponin I 0.056 Total Protein 7.3 Albumin 3.9 Globulin 3.40 H Albumin/Globulin Ratio 1.14 Lipase 75 Thyroid Stimulating Hormone (TSH) 3.520 Free Thyroxine 1.27 Total Triiodothyronine 1.06 Rapid Plasma Reagin NONREACTIVE Hepatitis B Surface Antigen NEGATIVE Hepatitis B Core Total Antibody REACTIVE H Hepatitis C Antibody NEGATIVE Exam/Review of Systems Exam Vitals Vital Signs Date Temp Pulse Resp B/P (MAP) Pulse Ox O2 O2 Flow FiO2 Time Delivery Rate 10/29/18 98.7 75 18 145/82 97 19:33 (103) 10/29/18 Nasal 4.0 08:00 Cannula Intake and Output 10/28/18 10/28/18 10/29/18 1515:00 23:00 07:00 IntakeIntake Total 112 ml 650 ml 150 ml OutputOutput Total 1300 ml 100 ml BalanceBalance 112 ml -650 ml 50 ml Results Results 24hrs Laboratory Tests Test 10/29/18 05:14 White Blood Count 7.8 Red Blood Count 3.76 L Hemoglobin 13.5 L Hematocrit 39.0 L Mean Corpuscular Volume 103.7 H Mean Corpuscular Hemoglobin 35.9 H Mean Corpuscular Hemoglobin Concent 34.6 Red Cell Distribution Width 13.7 Platelet Count 140 Mean Platelet Volume 9.4 Immature Granulocytes % 0.600 H Neutrophils % 74.6 Lymphocytes % 13.7 L Monocytes % 9.5 Eosinophils % 1.1 Basophils % 0.5 Nucleated Red Blood Cells % 0.0 Immature Granulocytes # 0.050 H Neutrophils # 5.8 Lymphocytes # 1.1 Monocytes # 0.7 Eosinophils # 0.1 Basophils # 0.0 Nucleated Red Blood Cells # 0.0 Prothrombin Time 12.7 Prothrombin Time Ratio 1.0 INR International Normalized Ratio 0.94 Activated Partial Thromboplast Time 36.3 H Sodium Level 137 Potassium Level 3.9 Chloride Level 101 Carbon Dioxide Level 27 Anion Gap 9 Blood Urea Nitrogen 13 Creatinine 0.82 Est Glomerular Filtrat Rate mL/min > 60 Glucose Level 100 Calcium Level 9.5 Phosphorus Level 3.4 Magnesium Level 1.6 L Total Bilirubin 0.8 Direct Bilirubin 0.00 Indirect Bilirubin 0.8 Aspartate Amino Transf (AST/SGOT) 37 Alanine Aminotransferase (ALT/SGPT) 24 Alkaline Phosphatase 79 Troponin I 0.056 Total Protein 7.3 Albumin 3.9 Globulin 3.40 H Albumin/Globulin Ratio 1.14 Lipase 75 Thyroid Stimulating Hormone (TSH) 3.520 Free Thyroxine 1.27 Total Triiodothyronine 1.06 Rapid Plasma Reagin NONREACTIVE Hepatitis B Surface Antigen NEGATIVE Hepatitis B Core Total Antibody REACTIVE H Hepatitis C Antibody NEGATIVE Medications Medication Current Medications IV Flush (NS 3 ml) 3 ml PER PROTOCOL IV ; Start 10/28/18 at 00:00 Aspirin (Aspirin) 81 mg DAILY PO Last administered on 10/29/18at 08:46; Admin Dose 81 MG; Start 10/28/18 at 09:00 Nitroglycerin (Nitroglycerin (Sl Tab) 0.4 Mg) 1 tab Q5M PRN SL .CHEST PAIN Last administered on 10/28/18at 15:16; Admin Dose 1 TAB; Start 10/28/18 at 00:00 Acetaminophen (Tylenol Tab) 650 mg Q6H PRN PO .PAIN 1-3 OR TEMP; Start 10/28/18 at 00:00 Morphine Sulfate (morphine) 2 mg Q4H PRN IV .PAIN 7-10 Last administered on 10/29/18at 19:36; Admin Dose 2 MG; Start 10/28/18 at 00:00 Famotidine (Pepcid Iv) 20 mg Q12 IV Last administered on 10/29/18 20:21; Admin Dose 20 MG; Start 10/28/18 at 09:00 Albuterol/ Ipratropium (Duoneb) 3 ml Q2H RESP THERAPY PRN HHN SHORTNESS OF BREATH Last administered on 10/28/18at 01:13; Admin Dose 3 ML; Start 10/28/18 at 00:00 Paroxetine HCl (Paxil) 10 mg BID PO Last administered on 10/29/18 20:22; Admin Dose 10 MG; Start 10/28/18 at 09:00 Quetiapine Fumarate (Seroquel) 100 mg HS PO Last administered on 10/29/18 20:21; Admin Dose 100 MG; Start 10/28/18 at 21:00 Nicotine (Nicoderm 21 Mg/ 24hr) 1 patch DAILY TRANSDERM Last administered on 10/29/18 08:48; Admin Dose 1 PATCH; Start 10/28/18 at 09:00 Atorvastatin Calcium (Lipitor) 40 mg HS PO Last administered on 10/29/18 20:21; Admin Dose 40 MG; Start 10/28/18 at 21:00 Lorazepam (Ativan) 1 mg Q6H PRN PO ANXIETY Last administered on 10/28/18 1 6:26; Admin Dose 1 MG; Start 10/28/18 at 09:30 Hydralazine HCl (Apresoline) 5 mg Q3H PRN IV SBP GREATER THAN 150 Last administered on 10/28/18 21:39; Admin Dose 5 MG; Start 10/28/18 at 13:00 Clonidine HCl (Catapres-Tts 2 Patch) 1 patch Q7D TRANSDERM Last administered on 10/28/18 14:40; Admin Dose 1 PATCH; Start 10/28/18 at 13:30 Acetaminophen/ Hydrocodone Bitart ([place] (10/325)) 1 tab Q3H PRN PO MODERATE PAIN LEVEL 4-6 Last administered on 10/29/18 20:23; Admin Dose 1 TAB; Start 10/28/18 at 15:30 Enoxaparin Sodium (Lovenox) 75 mg Q12 SC Last administered on 10/29/18 20:30; Admin Dose 75 MG; Start 10/29/18 at 09:00 Isosorbide Mononitrate (Imdur) 30 mg DAILY PO Last administered on 10/29/18 08:46; Admin Dose 30 MG; Start 10/29/18 at 09:00 Multivitamins 10 ml/Folic Acid 1 mg/Sodium Chloride 1,010.2 ml @ 125 mls/ hr DAILY@09 IVPB ; Start 10/30/18 at 09:00 Miscellaneous Information (* Miscellaneous Pharmacy Order) THIAMINE IV FOR USE IN [place]NA[place] BAG IS CURRENTLY ... Q12H XX ; Start 10/29/18 at 17:30 BLANCA YOUNG MD Oct 29, 2018 20:46
[2018-10-29] MEDS ORDERED: MAGNESIUM SULFATE 2 GM/50 ML 50 ML IVPB ONE (22:30)
[2018-10-30] VITALS (13 sets, daily range): BP systolic 138–170; BP diastolic 77–93; PULSE 66–89; RESP 18–22
[2018-10-30] MEDS: ALBUTEROL/IPRATROPIUM (NEB) 3 ML AMP HHN PRN (04:01)
[2018-10-30] MEDS: morphine 2 MG INJ IV PRN ×4 (05:13→18:29)
[2018-10-30] MEDS: HYDROCODONE/APAP (10/325) TAB PO PRN ×4 (06:12→19:03)
[2018-10-30] MEDS: NICOTINE (21 MG/24 HR) PATCH TRANSDERM SCH (09:06)
[2018-10-30] MEDS: ISOSORBIDE MONONITRATE(SR)30 MG TAB PO SCH (09:07)
[2018-10-30] MEDS: METOPROLOL 100 MG TAB PO SCH ×2 (09:07→12:03)
[2018-10-30] MEDS: ASPIRIN 81 MG TAB PO SCH (09:07)
[2018-10-30] MEDS: MULTIVITAMINS 10 ML, FOLIC ACID 1 MG in SOD CHLORIDE 0.9% 1,000 ML IVPB SCH (09:08)
[2018-10-30] MEDS: FAMOTIDINE 20 MG INJ IV SCH (09:08)
[2018-10-30] MEDS: PAROXETINE 10 MG TAB PO SCH ×2 (09:08→21:00)
[2018-10-30] MEDS: ENOXAPARIN 80 MG/0.8 ML SYG SC SCH (09:13)
[2018-10-30] MEDS ORDERED: IOHEXOL 100 ML ONE (10:51)
[2018-10-30] MEDS ORDERED: SOD CHLORIDE 0.9% 100 ML ONE (10:52)
[2018-10-30] MEDS ORDERED: METOPROLOL 5 MG INJ ONE (12:30)
--- NOTE | 2018-10-30 15:09 | CONS ---
Assessment/Plan Assessment/Plan Hospital Course (Demo Recall) Assessment: Atypical chest pain Minimally elevated troponin Cardiomyopathy - LVEF 40% with inferolateral hypokinesis, probably ischemic cardiomyopathy Hypertension Reported history of myocardial infarction - details are unclear, but patient reports no history of cardiac catheterization Reported history of stroke - details are unclear, no apparent residual deficits Chronic obstructive pulmonary disease Hypothyroidism Bipolar disorder Homelessness Alcohol abuse Tobacco abuse Recommendations: -patient not a good candidate for cardiac catheterization due to homelessness, alcohol abuse, probable medication noncompliance, and possible drug-seeking behavior -echocardiogram showed LVEF 40% with inferolateral hypokinesis -follow up coronary CTA results -start carvedilol 25mg BID -continue aspirin 81mg daily -continue atorvastatin 40mg daily Consultation Date/Type/Reason Admit Date/Time Oct 27, 2018 at 22:02 Initial Consult Date Type of Consult Cardiology Date/Time of Note DATE: 10/30/18 TIME: 15:07 24 HR Interval Summary Free Text/Dictation Finally able to bring down heart rate and obtain coronary CTA. Detailed Summary Additional Comments 14 point review of systems without changes. Exam/Review of Systems Vital Signs Vitals Vital Signs Date Temp Pulse Resp B/P (MAP) Pulse Ox O2 O2 Flow FiO2 Time Delivery Rate 10/30/18 68 12:10 10/30/18 97.6 22 157/86 96 Room Air 11:57 (109) 10/30/18 4.0 08:20 Intake and Output 10/29/18 10/29/18 10/30/18 1515:00 23:00 07:00 IntakeIntake Total 300 ml 1000 ml 550 ml OutputOutput Total 600 ml 800 ml 900 ml BalanceBalance -300 ml 200 ml -350 ml Exam Exam Constitutional: alert, well developed Psych: no complaints, nl mood/affect Head: normocephalic, atraumatic Eyes: nl conjunctiva, nl lids ENMT: nl external ears & nose, nl nasal mucosa & septum Neck: supple, non-tender Respiratory: diminished breath sounds, wheezing Cardiovascular: regular rate and rhythm Gastrointestinal: soft, non-tender Musculoskeletal: nl extremities to inspection Extremities: No cyanosis, No clubbing, No edema Neurological: nl mental status, nl speech Labs Result Diagram: 10/29/18 0514 10/29/18 0514 Medications Medications Current Medications IV Flush (NS 3 ml) 3 ml PER PROTOCOL IV ; Start 10/28/18 at 00:00 Aspirin (Aspirin) 81 mg DAILY PO Last administered on 10/30/18 09:07; Admin Dose 81 MG; Start 10/28/18 at 09:00 Nitroglycerin (Nitroglycerin (Sl Tab) 0.4 Mg) 1 tab Q5M PRN SL .CHEST PAIN Last administered on 10/28/18 15:16; Admin Dose 1 TAB; Start 10/28/18 at 00:00 Acetaminophen (Tylenol Tab) 650 mg Q6H PRN PO .PAIN 1-3 OR TEMP; Start 10/28/18 at 00:00 Morphine Sulfate (morphine) 2 mg Q4H PRN IV .PAIN 7-10 Last administered on 10/30/18 14:28; Admin Dose 2 MG; Start 10/28/18 at 00:00 Famotidine (Pepcid Iv) 20 mg Q12 IV Last administered on 10/30/18 09:08; Admin Dose 20 MG; Start 10/28/18 at 09:00 Albuterol/ Ipratropium (Duoneb) 3 ml Q2H RESP THERAPY PRN HHN SHORTNESS OF BREATH Last administered on 10/30/18 04:01; Admin Dose 3 ML; Start 10/28/18 at 00:00 Paroxetine HCl (Paxil) 10 mg BID PO Last administered on 10/30/18 09:08; Admin Dose 10 MG; Start 10/28/18 at 09:00 Quetiapine Fumarate (Seroquel) 100 mg HS PO Last administered on 10/29/18 20:21; Admin Dose 100 MG; Start 10/28/18 at 21:00 Nicotine (Nicoderm 21 Mg/ 24hr) 1 patch DAILY TRANSDERM Last administered on 10/30/18 09:06; Admin Dose 1 PATCH; Start 10/28/18 at 09:00 Atorvastatin Calcium (Lipitor) 40 mg HS PO Last administered on 10/29/18 20:21; Admin Dose 40 MG; Start 10/28/18 at 21:00 Lorazepam (Ativan) 1 mg Q6H PRN PO ANXIETY Last administered on 10/28/18 16:26; Admin Dose 1 MG; Start 10/28/18 at 09:30 Hydralazine HCl (Apresoline) 5 mg Q3H PRN IV SBP GREATER THAN 150 Last administered on 10/28/18 21:39; Admin Dose 5 MG; Start 10/28/18 at 13:00 Clonidine HCl (Catapres-Tts 2 Patch) 1 patch Q7D TRANSDERM Last administered on 10/28/18 14:40; Admin Dose 1 PATCH; Start 10/28/18 at 13:30 Acetaminophen/ Hydrocodone Bitart ([place] (10/325)) 1 tab Q3H PRN PO MODERATE PAIN LEVEL 4-6 Last administered on 10/30/18 14:58; Admin Dose 1 TAB; Start 10/28/18 at 15:30 Enoxaparin Sodium (Lovenox) 75 mg Q12 SC Last administered on 10/30/18 09:13; Admin Dose 75 MG; Start 10/29/18 at 09:00 Isosorbide Mononitrate (Imdur) 30 mg DAILY PO Last administered on 10/30/18 09:07; Admin Dose 30 MG; Start 10/29/18 at 09:00 Multivitamins 10 ml/Folic Acid 1 mg/Sodium Chloride 1,010.2 ml @ 125 mls/ hr DAILY@09 IVPB Last administered on 10/30/18 09:08; Admin Dose 125 MLS/HR; Start 10/30/18 at 09:00 Miscellaneous Information (* Miscellaneous Pharmacy Order) THIAMINE IV FOR USE IN BANANA BAG IS CURRENTLY ... Q12H XX ; Start 10/29/18 at 17:30 Metoprolol Tartrate (Lopressor) 100 mg TID PO Last administered on 10/30/18 12:03; Admin Dose 100 MG; Start 10/30/18 at 09:00 SHERRILL DUMONT MD Oct 30, 2018 15:09
--- NOTE | 2018-10-30 19:13 | PN ---
Date/Time of Note Date/Time of Note DATE: 10/30/18 TIME: 19:10 Assessment/Plan VTE Prophylaxis Risk score (from Ns)>0 risk: 2 SCD applied (from Ns): Yes SCD contraindicated: low risk/ambulating Pharmacological prophylaxis: NA/contraindicated, LMWH Pharm contraindication: low risk/ambulating Lines/Catheters IV Catheter Type (from [facility]): Peripheral IV Urinary Cath still in place: No Assessment/Plan Hospital Course A/P 1) Nstemi; not a candidate for cath. stable, cont med mngmnt: asa/statin/acei/imdur. CT results noted, recommend medical management. 2) Chr etoh; ro pancreatitis 3) Tobacco abuse; sp counselling 4) Aty CP/ sharp; cont supportive care 5) MDD; no ideation; cleared for dc 6) Substance abuse; sp counselling 7) CAD? no ho cath. echo w inferolat wma; watch for bradycardia. Not a candidate for cath/ stress due to nonadherence and substance abuse. 8) H/o Lt stroke 9) Nonadherence 10) Ftt/ homeless placement? 11) Bipolar? 12) Chr Back pain? no ho infection/surgery 13) H/o lobectomy; 14) H[facility]o [facility] F[facility]? 15) B12/folic acid def? S: 10/28 non exertional, sharp midsternal cp, assoc w nausea. denies injury, slept on the street recently. no fever/ chills. 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 no pleurisy 10/29 ct pending. no distress 10/30: Ongoing chest back pain. No known agg/ relieving factors. No fever. Pain seeking behavior? I asked him to evaluate his disposition plans. Ok to go home or sniff Wednesday. O: vss; sr PE no pallor/ jvd reg s1s2 no mrg ctab; mild tender bs+ nt; nd; no r/r/g no edema Disposition: Per social service assistance Result Diagram: 10/29/1851310/29/18 05 Exam/Review of Systems Exam Vitals Vital Signs Date Temp Pulse Resp B/P (MAP) Pulse Ox O2 O2 Flow FiO2 Time Delivery Rate 10/30/18 66 16:17 10/30/18 97.5 21 158/85 96 Room Air 15:31 (109) 10/30/18 4.0 08:20 Intake and Output 10/29/18 10/29/18 10/30/18 1515:00 23:00 07:00 IntakeIntake Total 300 ml 1000 ml 550 ml OutputOutput Total 600 ml 800 ml 900 ml BalanceBalance -300 ml 200 ml -350 ml Medications Medication Current Medications IV Flush (NS 3 ml) 3 ml PER PROTOCOL IV ; Start 10/28/18 at 00:00 Aspirin (Aspirin) 81 mg DAILY PO Last administered on 10/30/18 09:07; Admin Dose 81 MG; Start 10/28/18 at 09:00 Nitroglycerin (Nitroglycerin (Sl Tab) 0.4 Mg) 1 tab Q5M PRN SL .CHEST PAIN Last administered on 10/28/18at 15:16; Admin Dose 1 TAB; Start 10/28/18 at 00:00 Acetaminophen (Tylenol Tab) 650 mg Q6H PRN PO .PAIN 1-3 OR TEMP; Start 10/28/18 at 00:00 Morphine Sulfate (morphine) 2 mg Q4H PRN IV .PAIN 7-10 Last administered on 10/30/18 18:29; Admin Dose 2 MG; Start 10/28/18 at 00:00 Famotidine (Pepcid Iv) 20 mg Q12 IV Last administered on 10/30/18 09:08; Admin Dose 20 MG; Start 10/28/18 at 09:00 Albuterol/ Ipratropium (Duoneb) 3 ml Q2H RESP THERAPY PRN HHN SHORTNESS OF BREATH Last administered on 10/30/18at 04:01; Admin Dose 3 ML; Start 10/28/18 at 00:00 Paroxetine HCl (Paxil) 10 mg BID PO Last administered on 10/30/18 09:08; Admin Dose 10 MG; Start 10/28/18 at 09:00 Quetiapine Fumarate (Seroquel) 100 mg HS PO Last administered on 10/29/18 20:21; Admin Dose 100 MG; Start 10/28/18 at 21:00 Nicotine (Nicoderm 21 Mg/ 24hr) 1 patch DAILY TRANSDERM Last administered on 09:06; Admin Dose 1 PATCH; Start 10/28/18 at 09:00 Atorvastatin Calcium (Lipitor) 40 mg HS PO Last administered on 10/29/18 20:21; Admin Dose 40 MG; Start 10/28/18 at 21:00 Lorazepam (Ativan) 1 mg Q6H PRN PO ANXIETY Last administered on 10/28/18 16:26; Admin Dose 1 MG; Start 10/28/18 at 09:30 Hydralazine HCl (Apresoline) 5 mg Q3H PRN IV SBP GREATER THAN 150 Last administered on 10/28/18 21:39; Admin Dose 5 MG; Start 10/28/18 at 13:00 Clonidine HCl (Catapres-Tts 2 Patch) 1 patch Q7D TRANSDERM Last administered on 10/28/18 14:40; Admin Dose 1 PATCH; Start 10/28/18 at 13:30 Acetaminophen/ Hydrocodone Bitart ([place] (10/325)) 1 tab Q3H PRN PO MODERATE PAIN LEVEL 4-6 Last administered on 10/30/18 19:03; Admin Dose 1 TAB; Start 10/28/18 at 15:30 Enoxaparin Sodium (Lovenox) 75 mg Q12 SC Last administered on 10/30/18 09:13; Admin Dose 75 MG; Start 10/29/18 at 09:00 Isosorbide Mononitrate (Imdur) 30 mg DAILY PO Last administered on 10/30/18 09:07; Admin Dose 30 MG; Start 10/29/18 at 09:00 Multivitamins 10 ml/Folic Acid 1 mg/Sodium Chloride 1,010.2 ml @ 125 mls/ hr DAILY@09 IVPB Last administered on 10/30/18 09:08; Admin Dose 125 MLS/HR; Start 10/30/18 at 09:00 Miscellaneous Information (* Miscellaneous Pharmacy Order) THIAMINE IV FOR USE IN BANANA BAG IS CURRENTLY ... Q12H XX Last administered on 10/30/18 16:51; Admin Dose 1 EA; Start 10/29/18 at 17:30 Carvedilol (Coreg) 25 mg BID PO ; Start 10/30/18 at 21:00 BLANCA YOUNG MD Oct 30, 2018 19:13
[2018-10-30] MEDS ORDERED: DOCUSATE SODIUM 100 MG CAP PO PRN (19:30)
[2018-10-30] MEDS: QUETIAPINE 25 MG TAB PO SCH (20:59)
[2018-10-30] MEDS: hydrALAzine 20 MG INJ IV PRN (21:00)
[2018-10-30] MEDS: ATORVASTATIN 40 MG TAB PO SCH (21:00)
[2018-10-31] VITALS (12 sets, daily range): BP systolic 123–151; BP diastolic 73–84; PULSE 57–88; RESP 18
[2018-10-31] MEDS: morphine 2 MG INJ IV PRN ×5 (04:13→22:24)
[2018-10-31] MEDS: LORAZEPAM 1 MG TAB PO PRN ×3 (04:25→15:13)
[2018-10-31] MEDS: HYDROCODONE/APAP (10/325) TAB PO PRN ×5 (05:16→23:06)
[2018-10-31] MEDS: MULTIVITAMINS 10 ML, FOLIC ACID 1 MG in SOD CHLORIDE 0.9% 1,000 ML IVPB SCH (09:19)
[2018-10-31] MEDS: ISOSORBIDE MONONITRATE(SR)30 MG TAB PO SCH (09:20)
[2018-10-31] MEDS: PAROXETINE 10 MG TAB PO SCH ×2 (09:20→20:45)
[2018-10-31] MEDS: ASPIRIN 81 MG TAB PO SCH (09:20)
[2018-10-31] MEDS: MAGNESIUM OXIDE 400 MG TAB PO SCH (09:20)
[2018-10-31] MEDS: NICOTINE (21 MG/24 HR) PATCH TRANSDERM SCH (09:32)
[2018-10-31] MEDS: ENOXAPARIN 40 MG/0.4 ML SYG SC SCH (09:44)
--- NOTE | 2018-10-31 15:46 | PN ---
Date/Time of Note Date/Time of Note DATE: 10/31/18 TIME: 15:45 Assessment/Plan VTE Prophylaxis Risk score (from Nsg)>0 risk: 4 SCD applied (from Nsg): Yes Pharmacological prophylaxis: LMWH Lines/Catheters IV Catheter Type (from Nrsg): Peripheral IV Urinary Cath still in place: No Assessment/Plan Hospital Course SUBJECTIVE: Complains of chest pain. OBJECTIVE: Physical Exam General: Adequately build 63 year-old male lying in bed in no apparent distress. HEENT: Normocephalic, atraumatic. Eyes: Anicteric sclerae, conjunctivae clear. ENT: Nasal septum midline, oral mucosa moist. Neck supple. Respiratory: Bilaterally diminished breath sounds. No use of accessory muscles of respiration. Cardiovascular: S1, S2 heard. Regular rate and rhythm. Abdomen: Soft, nontender, and nondistended. Bowel sounds positive in all 4 quadrants. Genitourinary: Deferred. Extremities: No cyanosis, no clubbing, no edema. Peripheral pulses palpable. Neurologic: Cranial nerves II through XII grossly intact. The patient is awake and alert. Labs & Vitals per chart ASSESSMENT & PLAN 63-year-old male with comorbidities including nicotine use, alcohol abuse, bipolar disorder, depression, and right lobectomy who is currently homeless. The patient went to an outside emergency room for dyspnea. The patient was transferred to [facility] for further evaluation because of insurance reasons. 1. NSTEMI. -Cardiac CT showing diffuse concentric calcified plaque burden throughout the coronary artery degrades visualization of the lumen. -Patient not a good candidate for invasive procedures provider is homeless status, alcohol abuse, and the possibility of noncompliance. -Continue medical management. 2. Cardiomyopathy. -Ejection fraction 40%. -Continue beta-blockers. 3. Emphysema. -Continue inhaled bronchodilators. 4. Macrocytic anemia. -Most probably secondary to underlying alcoholism. 5. Alcohol abuse -Cessation advised. -Continue daily multivitamins. 6. Hypertension. -Continue antihypertensives. 7. Major depressive disorder. -Continue SSRIs with antipsychotics. 8. Homeless status. -Being followed by social worker delinquency prevention. 9. Fluids, electrolytes, and nutrition. -Low-cholesterol diet. 10. DVT prophylaxis. -Subcutaneous Lovenox. 11. Plan. -Continue aggressive medical management. -Physical therapy evaluation. -May need placement upon discharge. The patient was seen in collaboration with Dr. Mac. Result Diagram: 10/31/18 0821 10/31/18 0821 Results 24hrs Laboratory Tests Test 10/31/18 08:21 White Blood Count 5.0 # Red Blood Count 3.32 L Hemoglobin 12.0 L Hematocrit 33.9 L Mean Corpuscular Volume 102.1 H Mean Corpuscular Hemoglobin 36.1 H Mean Corpuscular Hemoglobin Concent 35.4 Red Cell Distribution Width 13.3 Platelet Count 124 L Mean Platelet Volume 9.0 Immature Granulocytes % 1.200 H Neutrophils % 64.8 Lymphocytes % 16.7 Monocytes % 14.7 H Eosinophils % 2.2 Basophils % 0.4 Nucleated Red Blood Cells % 0.0 Immature Granulocytes # 0.060 H Neutrophils # 3.3 Lymphocytes # 0.8 Monocytes # 0.7 Eosinophils # 0.1 Basophils # 0.0 Nucleated Red Blood Cells # 0.0 Sodium Level 138 Potassium Level 3.8 Chloride Level 105 Carbon Dioxide Level 25 Anion Gap 8 Blood Urea Nitrogen 12 Creatinine 0.78 Est Glomerular Filtrat Rate mL/min > 60 Glucose Level 103 Calcium Level 9.3 Phosphorus Level 3.8 Magnesium Level 1.6 L Total Bilirubin 0.6 Direct Bilirubin 0.00 Indirect Bilirubin 0.6 Aspartate Amino Transf (AST/SGOT) 40 Alanine Aminotransferase (ALT/SGPT) 23 Alkaline Phosphatase 88 Total Protein 6.9 Albumin 3.5 Globulin 3.40 H Albumin/Globulin Ratio 1.02 Lipase 88 Exam/Review of Systems Exam Vitals Vital Signs Date Temp Pulse Resp B/P (MAP) Pulse Ox O2 O2 Flow FiO2 Time Delivery Rate 10/31/18 72 12:34 10/31/18 98.0 18 148/80 95 Room Air 11:36 (102) 10/30/18 4.0 20:00 Intake and Output 10/30/18 10/30/18 10/31/18 1515:00 23:00 07:00 IntakeIntake Total 450 ml 600 ml OutputOutput Total 1000 ml 1500 ml BalanceBalance -550 ml -900 ml Results Results 24hrs Laboratory Tests Test 10/31/18 08:21 White Blood Count 5.0 # Red Blood Count 3.32 L Hemoglobin 12.0 L Hematocrit 33.9 L Mean Corpuscular Volume 102.1 H Mean Corpuscular Hemoglobin 36.1 H Mean Corpuscular Hemoglobin Concent 35.4 Red Cell Distribution Width 13.3 Platelet Count 124 L Mean Platelet Volume 9.0 Immature Granulocytes % 1.200 H Neutrophils % 64.8 Lymphocytes % 16.7 Monocytes % 14.7 H Eosinophils % 2.2 Basophils % 0.4 Nucleated Red Blood Cells % 0.0 Immature Granulocytes # 0.060 H Neutrophils # 3.3 Lymphocytes # 0.8 Monocytes # 0.7 Eosinophils # 0.1 Basophils # 0.0 Nucleated Red Blood Cells # 0.0 Sodium Level 138 Potassium Level 3.8 Chloride Level 105 Carbon Dioxide Level 25 Anion Gap 8 Blood Urea Nitrogen 12 Creatinine 0.78 Est Glomerular Filtrat Rate mL/min > 60 Glucose Level 103 Calcium Level 9.3 Phosphorus Level 3.8 Magnesium Level 1.6 L Total Bilirubin 0.6 Direct Bilirubin 0.00 Indirect Bilirubin 0.6 Aspartate Amino Transf (AST/SGOT) 40 Alanine Aminotransferase (ALT/SGPT) 23 Alkaline Phosphatase 88 Total Protein 6.9 Albumin 3.5 Globulin 3.40 H Albumin/Globulin Ratio 1.02 Lipase 88 Medications Medication Current Medications IV Flush (NS 3 ml) 3 ml PER PROTOCOL IV ; Start 10/28/18 at 00:00 Aspirin (Aspirin) 81 mg DAILY PO Last administered on 10/31/18 09:20; Admin Dose 81 MG; Start 10/28/18 at 09:00 Nitroglycerin (Nitroglycerin (Sl Tab) 0.4 Mg) 1 tab Q5M PRN SL .CHEST PAIN Last administered on 10/28/18at 15:16; Admin Dose 1 TAB; Start 10/28/18 at 00:00 Acetaminophen (Tylenol Tab) 650 mg Q6H PRN PO .PAIN 1-3 OR TEMP; Start 10/28/18 at 00:00 Morphine Sulfate (morphine) 2 mg Q4H PRN IV .PAIN 7-10 Last administered on 10/31/18 14:12; Admin Dose 2 MG; Start 10/28/18 at 00:00 Albuterol/ Ipratropium (Duoneb) 3 ml Q2H RESP THERAPY PRN HHN SHORTNESS OF BREATH Last administered on 10/30/18 04:01; Admin Dose 3 ML; Start 10/28/18 at 00:00 Paroxetine HCl (Paxil) 10 mg BID PO Last administered on 10/31/18 09:20; Admin Dose 10 MG; Start 10/28/18 at 09:00 Quetiapine Fumarate (Seroquel) 100 mg HS PO Last administered on 10/30/18 20:59; Admin Dose 100 MG; Start 10/28/18 at 21:00 Nicotine (Nicoderm 21 Mg/ 24hr) 1 patch DAILY TRANSDERM Last administered on 10/31/18 09:32; Admin Dose 1 PATCH; Start 10/28/18 at 09:00 Atorvastatin Calcium (Lipitor) 40 mg HS PO Last administered on 10/30/18 21:00; Admin Dose 40 MG; Start 10/28/18 at 21:00 Lorazepam (Ativan) 1 mg Q6H PRN PO ANXIETY Last administered on 10/31/18 15:13; Admin Dose 1 MG; Start 10/28/18 at 09:30 Hydralazine HCl (Apresoline) 5 mg Q3H PRN IV SBP GREATER THAN 150 Last administered on 10/30/18 21:00; Admin Dose 5 MG; Start 10/28/18 at 13:00 Clonidine HCl (Catapres-Tts 2 Patch) 1 patch Q7D TRANSDERM Last administered on 10/28/18 14:40; Admin Dose 1 PATCH; Start 10/28/18 at 13:30 Acetaminophen/ Hydrocodone Bitart ([place] (10/325)) 1 tab Q3H PRN PO MODERATE PAIN LEVEL 4-6 Last administered on 10/31/18 14:18; Admin Dose 1 TAB; Start 10/28/18 at 15:30 Isosorbide Mononitrate (Imdur) 30 mg DAILY PO Last administered on 10/31/18 09:20; Admin Dose 30 MG; Start 10/29/18 at 09:00 Multivitamins 10 ml/Folic Acid 1 mg/Sodium Chloride 1,010.2 ml @ 125 mls/ hr DAILY@09 IVPB Last administered on 10/31/18 09:19; Admin Dose 125 MLS/HR; Start 10/30/18 at 09:00 Miscellaneous Information (* Miscellaneous Pharmacy Order) THIAMINE IV FOR USE IN BANANA BAG IS CURRENTLY ... Q12H XX Last administered on 10/30/18 16:51; Admin Dose 1 EA; Start 10/29/18 at 17:30 Carvedilol (Coreg) 25 mg BID PO Last administered on 10/31/18 09:20; Admin Dose 25 MG; Start 10/30/18 at 21:00 Enoxaparin Sodium (Lovenox) 40 mg DAILY SC Last administered on 10/31/18at 09:44; Admin Dose 40 MG; Start 10/31/18 at 09:00 Docusate Sodium (Colace) 200 mg BID PRN PO CONSTIPATION; Start 10/30/18 at 19:30 Magnesium Oxide (Mag-Ox 400) 400 mg DAILY PO Last administered on 10/31/18at 09:20; Admin Dose 400 MG; Start 10/31/18 at 09:00 ASCENCION FAN NP Oct 31, 2018 15:46
[2018-10-31] MEDS: ATORVASTATIN 40 MG TAB PO SCH (20:45)
[2018-10-31] MEDS: QUETIAPINE 25 MG TAB PO SCH (20:46)
[2018-11-01] VITALS (12 sets, daily range): BP systolic 118–160; BP diastolic 75–92; PULSE 61–80; RESP 18
[2018-11-01] MEDS: morphine 2 MG INJ IV PRN ×4 (06:45→19:03)
[2018-11-01] MEDS: ASPIRIN 81 MG TAB PO SCH (08:11)
[2018-11-01] MEDS: PAROXETINE 10 MG TAB PO SCH ×2 (08:11→20:32)
[2018-11-01] MEDS: MAGNESIUM OXIDE 400 MG TAB PO SCH (08:11)
[2018-11-01] MEDS: ISOSORBIDE MONONITRATE(SR)30 MG TAB PO SCH (08:11)
[2018-11-01] MEDS: NICOTINE (21 MG/24 HR) PATCH TRANSDERM SCH (08:12)
[2018-11-01] MEDS: HYDROCODONE/APAP (10/325) TAB PO PRN ×3 (08:12→17:09)
[2018-11-01] MEDS: ENOXAPARIN 40 MG/0.4 ML SYG SC SCH (08:32)
[2018-11-01] MEDS: MULTIVITAMINS 10 ML, FOLIC ACID 1 MG in SOD CHLORIDE 0.9% 1,000 ML IVPB SCH (09:42)
[2018-11-01] MEDS: LORAZEPAM 1 MG TAB PO PRN ×2 (09:43→15:55)
--- NOTE | 2018-11-01 14:12 | PN ---
Date/Time of Note Date/Time of Note DATE: 11/01/18 TIME: 14:06 Assessment/Plan VTE Prophylaxis Risk score (from Nsg)>0 risk: 6 SCD applied (from Nsg): Yes Pharmacological prophylaxis: LMWH Lines/Catheters IV Catheter Type (from Nrsg): Peripheral IV Urinary Cath still in place: No Assessment/Plan Hospital Course SUBJECTIVE: Complains of back pain. OBJECTIVE: Physical Exam General: Adequately build 63 year-old male lying in bed in no apparent distress. HEENT: Normocephalic, atraumatic. Eyes: Anicteric sclerae, conjunctivae clear. ENT: Nasal septum midline, oral mucosa moist. Neck supple. Respiratory: Bilaterally diminished breath sounds. No use of accessory muscles of respiration. Cardiovascular: S1, S2 heard. Regular rate and rhythm. Abdomen: Soft, nontender, and nondistended. Bowel sounds positive in all 4 quadrants. Genitourinary: Deferred. Extremities: No cyanosis, no clubbing, no edema. Peripheral pulses palpable. Neurologic: Cranial nerves II through XII grossly intact. The patient is awake and alert. Labs & Vitals per chart ASSESSMENT & PLAN 63-year-old male with comorbidities including nicotine use, alcohol abuse, b ipolar disorder, depression, and right lobectomy who is currently homeless. The patient went to an outside emergency room for dyspnea. The patient was transferred to [facility] for further evaluation because of insurance reasons. 1. NSTEMI. -Cardiac CT showing diffuse concentric calcified plaque burden throughout the coronary artery degrades visualization of the lumen. -Patient not a good candidate for invasive procedures provider is homeless status, alcohol abuse, and the possibility of noncompliance. -Continue medical management. 2. Cardiomyopathy. -Ejection fraction 40%. -Continue beta-blockers. 3. Emphysema. -Continue inhaled bronchodilators. 4. Macrocytic anemia. -Most probably secondary to underlying alcoholism. 5. Alcohol abuse -Cessation advised. -Continue daily multivitamins. 6. Hypertension. -Continue antihypertensives. 7. Major depressive disorder. -Continue SSRIs with antipsychotics. 8. Back pain. -Lumbar spine X-ray results noted. 9. Homeless status. -Being followed by health and social care teacher. 10. Fluids, electrolytes, and nutrition. -Low-cholesterol diet. 10. DVT prophylaxis. -Subcutaneous Lovenox. 11. Plan. -Continue aggressive medical management. -Physical therapy evaluation. -May need placement upon discharge. The patient was seen in collaboration with Dr. Mac. Result Diagram: 11/01/18 1053 11/01/18 1053 Results 24hrs Laboratory Tests Test 11/01/18 10:53 White Blood Count 5.6 Red Blood Count 3.30 L Hemoglobin 11.8 L Hematocrit 34.3 L Mean Corpuscular Volume 103.9 H Mean Corpuscular Hemoglobin 35.8 H Mean Corpuscular Hemoglobin Concent 34.4 Red Cell Distribution Width 13.2 Platelet Count 149 # Mean Platelet Volume 9.3 Immature Granulocytes % 1.300 H Neutrophils % 64.9 Lymphocytes % 16.2 Monocytes % 15.1 H Eosinophils % 2.0 Basophils % 0.5 Nucleated Red Blood Cells % 0.0 Immature Granulocytes # 0.070 H Neutrophils # 3.6 Lymphocytes # 0.9 Monocytes # 0.8 Eosinophils # 0.1 Basophils # 0.0 Nucleated Red Blood Cells # 0.0 Sodium Level 140 Potassium Level 4.3 Chloride Level 100 Carbon Dioxide Level 29 Anion Gap 11 Blood Urea Nitrogen 14 Creatinine 0.88 Est Glomerular Filtrat Rate mL/min > 60 Glucose Level 113 Calcium Level 9.3 Phosphorus Level 4.1 Magnesium Level 1.6 L Exam/Review of Systems Exam Vitals Vital Signs Date Temp Pulse Resp B/P (MAP) Pulse Ox O2 O2 Flow FiO2 Time Delivery Rate 11/01/18 62 12:27 11/01/18 97.5 18 118/75 94 Room Air 11:00 (89) 10/30/18 4.0 20:00 Intake and Output 10/31/18 10/31/18 11/01/18 1515:00 23:00 07:00 IntakeIntake Total 980 ml 600 ml OutputOutput Total 500 ml 900 ml BalanceBalance 480 ml -300 ml Results Results 24hrs Laboratory Tests Test 11/01/18 10:53 White Blood Count 5.6 Red Blood Count 3.30 L Hemoglobin 11.8 L Hematocrit 34.3 L Mean Corpuscular Volume 103.9 H Mean Corpuscular Hemoglobin 35.8 H Mean Corpuscular Hemoglobin Concent 34.4 Red Cell Distribution Width 13.2 Platelet Count 149 # Mean Platelet Volume 9.3 Immature Granulocytes % 1.300 H Neutrophils % 64.9 Lymphocytes % 16.2 Monocytes % 15.1 H Eosinophils % 2.0 Basophils % 0.5 Nucleated Red Blood Cells % 0.0 Immature Granulocytes # 0.070 H Neutrophils # 3.6 Lymphocytes # 0.9 Monocytes # 0.8 Eosinophils # 0.1 Basophils # 0.0 Nucleated Red Blood Cells # 0.0 Sodium Level 140 Potassium Level 4.3 Chloride Level 100 Carbon Dioxide Level 29 Anion Gap 11 Blood Urea Nitrogen 14 Creatinine 0.88 Est Glomerular Filtrat Rate mL/min > 60 Glucose Level 113 Calcium Level 9.3 Phosphorus Level 4.1 Magnesium Level 1.6 L Medications Medication Current Medications IV Flush (NS 3 ml) 3 ml PER PROTOCOL IV ; Start 10/28/18 at 00:00 Aspirin (Aspirin) 81 mg DAILY PO Last administered on 11/01/18 08:11; Admin Dose 81 MG; Start 10/28/18 at 09:00 Nitroglycerin (Nitroglycerin (Sl Tab) 0.4 Mg) 1 tab Q5M PRN SL .CHEST PAIN Last administered on 10/28/18 15:16; Admin Dose 1 TAB; Start 10/28/18 at 00:00 Acetaminophen (Tylenol Tab) 650 mg Q6H PRN PO .PAIN 1-3 OR TEMP; Start 10/28/18 at 00:00 Morphine Sulfate (morphine) 2 mg Q4H PRN IV .PAIN 7-10 Last administered on 11/01/18 10:55; Admin Dose 2 MG; Start 10/28/18 at 00:00 Albuterol/ Ipratropium (Duoneb) 3 ml Q2H RESP THERAPY PRN HHN SHORTNESS OF BREATH Last administered on 10/30/18 04:01; Admin Dose 3 ML; Start 10/28/18 at 00:00 Paroxetine HCl (Paxil) 10 mg BID PO Last administered on 11/01/18 08:11; Admin Dose 10 MG; Start 10/28/18 at 09:00 Quetiapine Fumarate (Seroquel) 100 mg HS PO Last administered on 10/31/18 20:46; Admin Dose 100 MG; Start 10/28/18 at 21:00 Nicotine (Nicoderm 21 Mg/ 24hr) 1 patch DAILY TRANSDERM Last administered on 11/01/18 08:12; Admin Dose 1 PATCH; Start 10/28/18 at 09:00 Atorvastatin Calcium (Lipitor) 40 mg HS PO Last administered on 10/31/18 20:45; Admin Dose 40 MG; Start 10/28/18 at 21:00 Lorazepam (Ativan) 1 mg Q6H PRN PO ANXIETY Last administered on 11/01/18 09:43; Admin Dose 1 MG; Start 10/28/18 at 09:30 Hydralazine HCl (Apresoline) 5 mg Q3H PRN IV SBP GREATER THAN 150 Last administered on 10/30/18 21:00; Admin Dose 5 MG; Start 10/28/18 at 13:00 Clonidine HCl (Catapres-Tts 2 Patch) 1 patch Q7D TRANSDERM Last administered on 10/28/18 14:40; Admin Dose 1 PATCH; Start 10/28/18 at 13:30 Acetaminophen/ Hydrocodone Bitart ([place] (10/325)) 1 tab Q3H PRN PO MODERATE PAIN LEVEL 4-6 Last administered on 11/01/18 12:30; Admin Dose 1 TAB; Start 10/28/18 at 15:30 Isosorbide Mononitrate (Imdur) 30 mg DAILY PO Last administered on 11/01/18 08:11; Admin Dose 30 MG; Start 10/29/18 at 09:00 Multivitamins 10 ml/Folic Acid 1 mg/Sodium Chloride 1,010.2 ml @ 125 mls/ hr DAILY@09 IVPB Last administered on 11/01/18 09:42; Admin Dose 125 MLS/HR; Start 10/30/18 at 09:00 Miscellaneous Information (* Miscellaneous Pharmacy Order) THIAMINE IV FOR USE IN BANANA BAG IS CURRENTLY ... Q12H XX Last administered on 10/30/18 16:51; Admin Dose 1 EA; Start 10/29/18 at 17:30 Carvedilol (Coreg) 25 mg BID PO Last administered on 11/01/18 08:11; Admin Dose 25 MG; Start 10/30/18 at 21:00 Enoxaparin Sodium (Lovenox) 40 mg DAILY SC Last administered on 11/01/18 08:32; Admin Dose 40 MG; Start 10/31/18 at 09:00 Docusate Sodium (Colace) 200 mg BID PRN PO CONSTIPATION; Start 10/30/18 at 19:30 Magnesium Oxide (Mag-Ox 400) 400 mg DAILY PO Last administered on 3/19/19at 08:11; Admin Dose 400 MG; Start 10/31/18 at 09:00 ASCENCION FAN NP Nov 01, 2018 14:12
--- NOTE | 2018-11-01 17:30 | CONS ---
Assessment/Plan Assessment/Plan Hospital Course (Demo Recall) Assessment: Atypical chest pain Minimally elevated troponin Cardiomyopathy - LVEF 40% with inferolateral hypokinesis, probably ischemic cardiomyopathy Hypertension Reported history of myocardial infarction - details are unclear, but patient reports no history of cardiac catheterization Reported history of stroke - details are unclear, no apparent residual deficits Chronic obstructive pulmonary disease Hypothyroidism Bipolar disorder Homelessness Alcohol abuse Tobacco abuse Recommendations: -coronary CTA nondiagnostic but possible severe disease, would need cardiac c atheterization for further characterization -patient not currently a good candidate for cardiac catheterization due to homelessness, alcohol abuse, probable medication noncompliance, and possible drug-seeking behavior -echocardiogram showed LVEF 40% with inferolateral hypokinesis -continue carvedilol 25mg BID -continue aspirin 81mg daily -continue atorvastatin 40mg daily Consultation Date/Type/Reason Admit Date/Time Oct 27, 2018 at 22:02 Initial Consult Date Type of Consult Cardiology Date/Time of Note DATE: 11/01/18 TIME: 17:28 24 HR Interval Summary Free Text/Dictation No acute events. Detailed Summary Additional Comments 14 point review of systems without changes. Exam/Review of Systems Vital Signs Vitals Vital Signs Date Temp Pulse Resp B/P (MAP) Pulse Ox O2 O2 Flow FiO2 Time Delivery Rate 11/01/18 61 16:41 11/01/18 98.6 18 160/86 95 Room Air 15:43 (110) 10/30/18 4.0 20:00 Intake and Output 10/31/18 10/31/18 11/01/18 1414:59 22:59 06:59 IntakeIntake Total 980 ml 600 ml OutputOutput Total 500 ml 900 ml BalanceBalance 480 ml -300 ml Exam Exam Constitutional: alert, well developed Psych: no complaints, nl mood/affect Head: normocephalic, atraumatic Eyes: nl conjunctiva, nl lids ENMT: nl external ears & nose, nl nasal mucosa & septum Neck: supple, non-tender Respiratory: diminished breath sounds, wheezing Cardiovascular: regular rate and rhythm Gastrointestinal: soft, non-tender Musculoskeletal: nl extremities to inspection Extremities: No cyanosis, No clubbing, No edema Neurological: nl mental status, nl speech Labs Result Diagram: 11/01/18 1053 11/01/18 1053 Results 24hrs Laboratory Tests Test 11/01/18 10:53 White Blood Count 5.6 Red Blood Count 3.30 L Hemoglobin 11.8 L Hematocrit 34.3 L Mean Corpuscular Volume 103.9 H Mean Corpuscular Hemoglobin 35.8 H Mean Corpuscular Hemoglobin Concent 34.4 Red Cell Distribution Width 13.2 Platelet Count 149 # Mean Platelet Volume 9.3 Immature Granulocytes % 1.300 H Neutrophils % 64.9 Lymphocytes % 16.2 Monocytes % 15.1 H Eosinophils % 2.0 Basophils % 0.5 Nucleated Red Blood Cells % 0.0 Immature Granulocytes # 0.070 H Neutrophils # 3.6 Lymphocytes # 0.9 Monocytes # 0.8 Eosinophils # 0.1 Basophils # 0.0 Nucleated Red Blood Cells # 0.0 Sodium Level 140 Potassium Level 4.3 Chloride Level 100 Carbon Dioxide Level 29 Anion Gap 11 Blood Urea Nitrogen 14 Creatinine 0.88 Est Glomerular Filtrat Rate mL/min > 60 Glucose Level 113 Calcium Level 9.3 Phosphorus Level 4.1 Magnesium Level 1.6 L Medications Medications Current Medications IV Flush (NS 3 ml) 3 ml PER PROTOCOL IV ; Start 10/28/18 at 00:00 Aspirin (Aspirin) 81 mg DAILY PO Last administered on 11/01/18at 08:11; Admin Dose 81 MG; Start 10/28/18 at 09:00 Nitroglycerin (Nitroglycerin (Sl Tab) 0.4 Mg) 1 tab Q5M PRN SL .CHEST PAIN Last administered on 10/28/18at 15:16; Admin Dose 1 TAB; Start 10/28/18 at 00:00 Acetaminophen (Tylenol Tab) 650 mg Q6H PRN PO .PAIN 1-3 OR TEMP; Start 10/28/18 at 00:00 Morphine Sulfate (morphine) 2 mg Q4H PRN IV .PAIN 7-10 Last administered on 11/01/18at 14:53; Admin Dose 2 MG; Start 10/28/18 at 00:00 Albuterol/ Ipratropium (Duoneb) 3 ml Q2H RESP THERAPY PRN HHN SHORTNESS OF BREATH Last administered on 10/30/18at 04:01; Admin Dose 3 ML; Start 10/28/18 at 00:00 Paroxetine HCl (Paxil) 10 mg BID PO Last administered on 11/01/18 08:11; Admin Dose 10 MG; Start 10/28/18 at 09:00 Nicotine (Nicoderm 21 Mg/ 24hr) 1 patch DAILY TRANSDERM Last administered on 11/01/18 08:12; Admin Dose 1 PATCH; Start 10/28/18 at 09:00 Atorvastatin Calcium (Lipitor) 40 mg HS PO Last administered on 10/31/18 20:45; Admin Dose 40 MG; Start 10/28/18 at 21:00 Lorazepam (Ativan) 1 mg Q6H PRN PO ANXIETY Last administered on 11/01/18 1 5:55; Admin Dose 1 MG; Start 10/28/18 at 09:30 Hydralazine HCl (Apresoline) 5 mg Q3H PRN IV SBP GREATER THAN 150 Last administered on 10/30/18 21:00; Admin Dose 5 MG; Start 10/28/18 at 13:00 Clonidine HCl (Catapres-Tts 2 Patch) 1 patch Q7D TRANSDERM Last administered on 10/28/18 14:40; Admin Dose 1 PATCH; Start 10/28/18 at 13:30 Acetaminophen/ Hydrocodone Bitart ([place] (10/325)) 1 tab Q3H PRN PO MODERATE PAIN LEVEL 4-6 Last administered on 11/01/18 17:09; Admin Dose 1 TAB; Start 10/28/18 at 15:30 Isosorbide Mononitrate (Imdur) 30 mg DAILY PO Last administered on 11/01/18 08:11; Admin Dose 30 MG; Start 10/29/18 at 09:00 Multivitamins 10 ml/Folic Acid 1 mg/Sodium Chloride 1,010.2 ml @ 125 mls/ hr DAILY@09 IVPB Last administered on 11/01/18 09:42; Admin Dose 125 MLS/HR; Start 10/30/18 at 09:00 Miscellaneous Information (* Miscellaneous Pharmacy Order) THIAMINE IV FOR USE IN BANANA BAG IS CURRENTLY ... Q12H XX Last administered on 10/30/18 16:51; Admin Dose 1 EA; Start 10/29/18 at 17:30 Carvedilol (Coreg) 25 mg BID PO Last administered on 11/01/18 08:11; Admin Dose 25 MG; Start 10/30/18 at 21:00 Enoxaparin Sodium (Lovenox) 40 mg DAILY SC Last administered on 11/01/18 0 8:32; Admin Dose 40 MG; Start 10/31/18 at 09:00 Docusate Sodium (Colace) 200 mg BID PRN PO CONSTIPATION; Start 10/30/18 at 19:30 Magnesium Oxide (Mag-Ox 400) 400 mg DAILY PO Last administered on 11/01/18at 08:11; Admin Dose 400 MG; Start 10/31/18 at 09:00 Quetiapine Fumarate (Seroquel) 200 mg QHS PO ; Start 11/01/18 at 21:00 SHERRILL DUMONT MD Nov 01, 2018 17:30
--- NOTE | 2018-11-01 17:44 | CONS ---
Date/Time of Note Date/Time of Note DATE: 11/01/18 TIME: 17:42 Consult Date/Type/Reason Admit Date Oct 27, 2018 at 22:02 Type of Consult Psych Subjective [id number] evaluation patient is more alert and oriented today has better coping skills however he still reports feeling depressed reports feeling lonely is requesting for a therapist to spend time with him may be an hour to 2hours. Patient has poor coping skills but denies suicidal ideation and contracted for safety Objective Patient Appearance: Appropriate dress Voice Loudness: Moderately Loud Mood and Affect Description: Anxious Mood or Affect: Crying, Fearful Speech Pattern: Clear Thought Process: Intact Hallucination Type: None Delusion Description: Not Present Assessment/Plan Recommendations Paxil 10mg daily, Seroquel 600mg at bedtime Ativan 1mg Q6H PRN ENZO MUHAMMAD NP Nov 01, 2018 17:44
[2018-11-01] MEDS: ATORVASTATIN 40 MG TAB PO SCH (20:31)
[2018-11-01] MEDS ORDERED: QUETIAPINE 100 MG TAB PO SCH ×2 (21:00)
[2018-11-02] VITALS (8 sets, daily range): BP systolic 120–138; BP diastolic 69–83; PULSE 69–84; RESP 17–20
[2018-11-02] MEDS: ENOXAPARIN 40 MG/0.4 ML SYG SC SCH (09:23)
[2018-11-02] MEDS: ASPIRIN 81 MG TAB PO SCH (09:24)
[2018-11-02] MEDS: NICOTINE (21 MG/24 HR) PATCH TRANSDERM SCH (09:24)
[2018-11-02] MEDS: MAGNESIUM OXIDE 400 MG TAB PO SCH (09:24)
[2018-11-02] MEDS: PAROXETINE 10 MG TAB PO SCH (09:24)
[2018-11-02] MEDS: ISOSORBIDE MONONITRATE(SR)30 MG TAB PO SCH (09:24)
[2018-11-02] MEDS: morphine 2 MG INJ IV PRN ×2 (09:25→14:00)
[2018-11-02] MEDS: MULTIVITAMINS 10 ML, FOLIC ACID 1 MG in SOD CHLORIDE 0.9% 1,000 ML IVPB SCH (10:25)
[2018-11-02] MEDS: LORAZEPAM 1 MG TAB PO PRN (11:04)
[2018-11-02] MEDS: HYDROCODONE/APAP (10/325) TAB PO PRN ×2 (11:05→14:49)
--- NOTE | 2018-11-02 11:13 | PN ---
Date/Time of Note Date/Time of Note Assessment/Plan VTE Prophylaxis Risk score (from Ns)>0 risk: 3 Assessment/Plan Result Diagram: 11/02/18 0716 11/02/18 0716 Exam/Review of Systems Medications Medication ASCENCION FAN NP Nov 02, 2018 11:12
[2018-11-02] MEDS ORDERED: ISOS30TA67 PO (11:47)
[2018-11-02] MEDS ORDERED: ATOR40TA68 PO (11:47)
[2018-11-02] MEDS ORDERED: ASPI-817 PO (11:47)
[2018-11-02] MEDS ORDERED: CARV25TA79 PO (11:47)
[2018-11-02] MEDS ORDERED: ALBU8.5H8 INH (11:47)
--- NOTE | 2018-11-02 11:49 | PDOCDIS ---
Discharge Instructions CONDITION [id number] Patient Condition: [id number] Stable HOME CARE INSTRUCTIONS: [id number] Diet Instructions: [id number] Low Fat /Cholesterol FOLLOW UP/APPOINTMENTS Follow-up Plan Charanjit Burgess MD Specialty: Internal Medicine Office Address: [address] [place], [place] [id number] Office OTHER ORDERS: Other Orders: 1. Take medications as per prescription. 2. Follow a low-cholesterol diet. 3. Resume activities with assist as tolerated. 4. Please follow-up with your primary care physician in 2 weeks. If you do not have a primary care physician, please call Dr. Charanjit Burgess's office. 5. Please go to the nearest emergency room if you have any chest pain, significant shortness of breath, or any other unusual signs/symptoms. 6. Abstain from using tobacco and alcohol. ASCENCION FAN NP Nov 02, 2018 11:49
--- NOTE | 2018-11-02 13:56 | DS ---
Date/Time of Note Date/Time of Note DATE: 11/02/18 TIME: 13:56 Discharge Summary Admission/Discharge Info Admit Date/Time Oct 27, 2018 at 22:02 Discharge Date/Time Discharge Diagnosis 1. NSTEMI. Cardiac CT showing diffuse concentric calcified plaque burden thro ughout the coronary artery degrades visualization of the lumen. 2. Cardiomyopathy. Ejection fraction 40%. 3. Emphysema. 4. Macrocytic anemia. 5. Alcohol abuse 6. Hypertension. 7. Major depressive disorder. 8. Chronic back pain. 9. Homeless status. 10. Remote history of [place]ever. Patient Condition: Stable Consults 1. Naveed Wynne MD, Cardiology. 2. Anila Sims NP, Psychiatry. Procedures Cardiac CT IMPRESSION: Total calcium score: 6156 Diffuse concentric calcified plaque burden throughout the coronary artery degrades visualization of the lumen; multifocal severe stenoses are not excluded. Chest CT IMPRESSION: 1. Centrilobular nodularity and peribronchial opacities demonstrated in the right upper, middle, and bilateral lower lobes in the background of pronounced diffuse bronchial wall thickening and cylindrical airway ectasia, compatible with a cellular bronchiolitis and/or bronchopneumonia/aspiration. 2. Partially calcified 12 mm pulmonary nodule with associated scarring, regional architectural distortion and mild traction bronchiectasis, likely postinflammatory and sequelae of old granulomatous disease. 3. Background of mild smoking-related emphysema and chronic bronchitis and/or smoking related airways disease. 4. Severe cardiovascular calcifications. 5. Severe hepatic steatosis. 2D Echocardiogram Conclusions: Normal left ventricular cavity size. Left ventricular wall thickness upper limits of normal. Moderate left ventricular systolic dysfunction. Ejection fraction is visually estimated at 40 %. Tissue Doppler/Mitral Doppler indices are consistent with pseudonormalization with mildly elevated left atrial pressure (Stage II diastolic dysfunction). These segments of the LV are hypokinetic inferolateral base and inferolateral mid segment. Hx of Present Illness This is a 63-year-old male with comorbidities including nicotine use, alcohol abuse, bipolar disorder, depression, and right lobectomy who is currently homeless. The patient went to an outside emergency room for dyspnea. The patient was transferred to [facility] for further evaluation because of insurance reasons. Hospital Course The patient had evidence of NSTEMI. Therefore, cardiology consult was obtained. The patient underwent a 2D echocardiogram that was showing ejection fraction of 40%. The patient underwent a cardiac CT that was showing diffuse calcific plaque burden throughout the coronary artery with high suspicion for obstructive coronary artery. As per cardiology, the patient is not a good candidate for invasive procedures provided the patient's homeless status, alcohol abuse, and the possibility of noncompliance. Therefore, the patient was maintained on aggressive medical therapy including aspirin, beta-blockers, and nitrates. The patient has underlying emphysema. The patient is a chronic smoker. The patient was maintained on inhaled bronchodilators. The patient did not have any evidence of any COPD exacerbation. The patient is also current alcohol abuser. He was maintained on daily multivitamins. The patient was noticed to have macrocytic anemia, most probably related to his chronic alcohol abuse. The patient was maintained on antihypertensives for his underlying hypertension. The patient was noticed to be debilitated. The patient was evaluated by physical therapy. The patient needs further physical therapy. The patient also is homeless. The patient was evaluated by jig worker and the patient will be discharged to a [facility] in [place]. The patient was complaining of low back pain. The patient's lumbar spine X-ray was showing chronic changes. The patient was provided with pain control. The patient also has underlying major depressive disorder. The patient was maintained on selective serotonin reuptake inhibitors and antipsychotics. The patient was evaluated by psychiatry twice during this hospitalization. The patient had a stable hospital course. The patient was cleared by cardiology to be discharged. Discharge Instructions 1. Take medications as per prescription. 2. Follow a low-cholesterol diet. 3. Resume activities with assist as tolerated. 4. Please follow-up with your primary care physician in 2 weeks. If you do not have a primary care physician, please call Dr. Charanjit Burgess's office. 5. Please go to the nearest emergency room if you have any chest pain, significant shortness of breath, or any other unusual signs/symptoms. 6. Abstain from using tobacco and alcohol. The patient verbalized understanding of his discharge instructions. At this time I would like to thank all the consultants for seeing the patient and providing clinical recommendations. The patient was seen in collaboration with Dr. Mac. Home Meds Active Scripts Aspirin* (Aspirin* EC) 81 Mg Tablet., 81 MG PO DAILY, #30 TAB Prov:ASCENCION FAN NP 11/02/18 Albuterol Sulfate* (Proair HFA*) 8.5 Gm Hfa.aer.ad, 2 PUFF INH Q4H PRN for WHEEZING AND SOB, #1 INHALER Prov:ASCENCION FAN BORING INSPECTOR 11/02/18 Isosorbide Mononitrate* (Isosorbide Mononitrate*) 30 Mg Tab.er.24h, 30 MG PO DAILY, #30 Prov:ASCENCION FAN BORING INSPECTOR 11/02/18 Carvedilol* (Carvedilol*) 25 Mg Tablet, 25 MG PO BID, #60 TAB Prov:ASCENCION FAN BORING INSPECTOR 11/02/18 Atorvastatin* (Atorvastatin*) 40 Mg Tablet, 40 MG PO HS, #30 TAB Prov:ASCENCION FAN BORING INSPECTOR 11/02/18 Reported Medications Paroxetine Hcl* (Paxil*) 10 Mg Tablet, 10 MG PO BID, TAB 10/27/18 Quetiapine Fumarate* (Seroquel*) 400 Mg Tablet, 600 MG PO HS, TAB 10/27/18 Follow-up Plan Charanjit Burgess MD Specialty: Internal Medicine Office Address: [address] [place] [address] Office Primary Care Provider Not On Staff Doctor Time spent on discharge: > 30 minutes Pending Labs Laboratory Tests Test 11/02/18 07:16 White Blood Count 4.6 10^3/ul (4.8-10.8) Red Blood Count 3.42 10^6/ul (4.70-6.10) Hemoglobin 12.0 g/dl (14.0-18.0) Hematocrit 35.5 % (42.0-52.0) Mean Corpuscular Volume 103.8 fl (82.0-101.0) Mean Corpuscular Hemoglobin 35.1 pg (29.0-33.0) Mean Corpuscular Hemoglobin Concent 33.8 g/dl (32.0-37.0) Red Cell Distribution Width 13.4 % (11.5-14.5) Platelet Count 157 10^3/UL (140-415) Mean Platelet Volume 9.5 fl (7.4-10.4) Immature Granulocytes % 1.700 % (0.001-0.429) Neutrophils % 64.0 % (39.0-77.0) Lymphocytes % 19.0 % (15.0-51.0) Monocytes % 13.0 % (0.0-11.0) Eosinophils % 1.7 % (0.0-7.0) Basophils % 0.6 % (0.0-2.0) Nucleated Red Blood Cells % 0.0 /100WBC (0.0-0.0) Immature Granulocytes # 0.080 10^3/ul (0.0-0.031) Neutrophils # 3.0 10^3/ul (1.6-7.5) Lymphocytes # 0.9 10^3/ul (0.8-2.9) Monocytes # 0.6 10^3/ul (0.3-0.9) Eosinophils # 0.1 10^3/ul (0.0-0.5) Basophils # 0.0 10^3/ul (0.0-0.1) Nucleated Red Blood Cells # 0.0 10^3/ul (0.0-0.0) Sodium Level 143 mmol/L (135-144) Potassium Level 3.7 mmol/L (3.5-5.1) Chloride Level 109 mmol/L (97-110) Carbon Dioxide Level 24 mmol/L (21-31) Anion Gap 10 (5-13) Blood Urea Nitrogen 14 mg/dl (7-20) Creatinine 0.85 mg/dl (0.61-1.24) Est Glomerular Filtrat Rate mL/min > 60 mL/min (>60) Glucose Level 95 mg/dl (70-220) Calcium Level 9.4 mg/dl (8.4-10.2) Phosphorus Level 3.8 mg/dl (2.5-4.9) Magnesium Level 1.7 mg/dl (1.7-2.5) ASCENCION AFN NP Nov 02, 2018 13:56
== END 2018-11-02 15:54 | disposition home health service (06) | DRG 281 ==
LOC: 6WM 22:02
PROVIDERS: ADMIT Hospitalist; ATTEND Internal Medicine
DX: I21.4 Non-ST elevation (NSTEMI) myocardial infarction (principal); I42.9 Cardiomyopathy, unspecified; F33.2 Major depressive disorder, recurrent severe without psychotic features; J43.9 Emphysema, unspecified; R09.02 Hypoxemia; F10.10 Alcohol abuse, uncomplicated; F41.9 Anxiety disorder, unspecified; E03.9 Hypothyroidism, unspecified; I25.10 Atherosclerotic heart disease of native coronary artery without angina pectoris; I10 Essential (primary) hypertension; D53.9 Nutritional anemia, unspecified; R07.89 Other chest pain; F17.200 Nicotine dependence, unspecified, uncomplicated; Z79.82 Long term (current) use of aspirin; I25.2 Old myocardial infarction; Z59.0 Homelessness; Z86.73 Personal history of transient ischemic attack (TIA), and cerebral infarction without residual deficits; Z91.19 Patient's noncompliance with other medical treatment and regimen
CPT/HCPCS: 71045; 71250; 72100; 75571; 75574; 80048; 80053; 80061; 82550; 82553; 83036; 83690; 83735; 84100; 84439; 84443; 84480; 84484; 85025; 85610; 85730; 86592; 86704; 86709; 86803; 87081; 87340; 93306; 94640; 94664; 97116; 97162; 97530; J0360; J1650; J2270; J3411; J3475; J7030; Q9967